=== PATIENT | male | born 1960 | race Caucasian/White ===

== ENCOUNTER 2017-11-04 08:30 | Outpatient (RCR) | payer MEDICAID, SELFPAY ==
--- NOTE | 2017-10-17 10:30 | IE_ITS ---
Date: October 17, 2017 Referring: Geovani Blair MD M.D. Diagnosis: Bilateral leg weakness P.T. Diagnosis: Same, with LBP SUBJECTIVE: History of Present Illness: Giles complains of intermittent discomfort throughout the knees, anterior and posteriorly. This generally occurs when initially standing after prolonged sitting and with walking for greater than 200 feet. He needs to sit down and his symptoms resolve within a few minutes. His knee pain is worse with stairclimbing, hills, along with squatting, occasional sensation of knee buckling. Also interferes with his sleeping pattern. It can be quite intense when he first retires at night. He has a.m stiffness and pain. His 2nd complaint is of intermittent lumbago, he is not sure if it is associated with his knee pain and they can occur separate from one another, even though generally lumbago occurs with weight bearing activities. A 57 year old male who developed an insidious onset of bilateral knee pain approximately 1 year ago. He has had some episodic LBP. He has not worked over the last 5 years. He was up to 337#, he is down to 300 with dieting, but no change in his overall symptoms. Pain Ratin/10 on VAS Pain Location: Through the low back area as well as anterior thighs and knees. Prior Level of Function: Independent with all ADL's Current Level of Function: He has difficulty with all household activity, squatting, donning and doffing shoes, carrying items whether light or heavy, stairclimbing, standing for more than 10 mins, etc. . . Previous Treatment: Injured his R knee approximately 5-7 years ago, recovered after 3 months. Social: Has not worked for 5 years. 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 . . Comorbidities: Diabetes, hypertension. Falls in the last year: __X__ No ____Yes - How many? ____ - (if over 2, balance SM needs to be completed) Reported hospitalizations in the last year - __X__ No ____ Yes - Dates of admission/reason: Medications: Ibuprofen prn, Metformin and Glucophage. Quality of Life: ____ Excellent ____ Good ____ Fair __X__ Poor Standardized Measures: LEFS score: __94%__ OBJECTIVE: Posture: Obese, (-) lateral shift, hyperpronator. Observation: (behavior, atrophy, skin color, etc.) His complaints of pain correlate with his movement patterns. Gait: Ambulates without assistive device with antalgia on the R from mid stance to push off. Again, he is a pronator. He is able to walk on his heel and toes without weakness. ROM: His lumbar movements in the upright position flexion distance between fingertips and floor is approximately 8 with complaints of lumbago. After stretching his hamstrings, he can get within 3-4 with end range drawing throughout the hamstrings. Extension is limited to 0 degrees, sidebending bilaterally is hypomobile with end range pain, sidegliding is non-painful. Bilateral hip motion is within functional limits without pain on movement. Has (-) SLR bilaterally with hamstring length at approximately 60 degrees, (-) Delvis' s test. Bilateral knee motion is full and painless with movement. (-) Daniel's or drawer sign, (-) laxity with valgus varus stress, (-) Robert's or Apley's grind test. (-) effusion, erythema or warmth. He is non-tender throughout the joint lines except medially on the R. (-) patellofemoral compression. His talocrural, subtalar and mid tarsal movements are full and painless with movement. He has a forefoot varus of approximately 7 degrees with subtalar neutral. Joint Accessory Motion: He is hypomobile with PA glides of the lumbar and thoracic spine, but this is non-painful. Strength: He has full motor control throughout at 5/5. Neuro: KJs/AJs are +2 and symmetrical. Sensation is intact to light touch. Palpation: Non-tender throughout the lumbar paraspinals, QL or piriformis. Minimally tender over the gluteus medius bilaterally and equally. Special Tests: (-) SLR or slump test, (-) femoral nerve stretch. Treatment: IE: [id number] Therapeutic procedures ([id number]). Direct treatment time: 60 mins Total treatment time: 60 mins ASSESSMENT: Patient is a 57-year-old male, referred for PT services with the diagnosis of lumbago and anterior thigh, and knee pain. Patient presents with clinical signs and symptoms consistent with this diagnosis, as demonstrated by the following impairment level findings: limited ROM of lumbar spine, along complaints of back and leg pain. His x-rays show mild degenerative changes throughout the lumbar spine, and his knee x-rays are unremarkable, according to the radiologist. Impairments are contributing to the following functional limitations: Difficulty with all ADL's due to his pain. Inability to stand or walk for more than a couple mins Patient is assessed as: __X__ Low 06982 ____ Moderate 64335 ____ High 20174 complexity, based on the following: History: (list): Chronic lumbago and sciatica See comorbidities and social history. Examination: (list): X See above for functional limitations and impairments. Presentation: X Stable . X Evolving Unstable Decision-Making: Low complexity Moderate complexity X High complexity % Disability based on LEFS of 94% __X__ Patient requires skilled PT intervention to remediate the above functional limitations to return to: __X__ Improve QOL ____ Other: Prognosis: ____ Excellent __X__ Good __X__ Fair ____ Poor STG: __6__ weeks. 1: Improve lumbar mobility, core and LE strength to decrease pain with weight bearing in hopes he will be able to stand and walk for longer periods of time without discomfort. LTG: __12__ weeks. 1: Improve his quality of life. PLAN: Session today consisted of the evaluation and issuing him a written, and illustrated home exercise program, instructing him in lumbar flexibility exercises along with some core strengthening, postural correction in a sitting, and standing position. Use of lumbar support when sitting. Will see him 2x a week and get him on a progression core stabilization program, mobilization of the articular and soft tissue structures, along with conditioning exercises. Will modify the program as symptoms dictate. Discussed aqua therapy to exercise in a more decompressed environment, but he is not interested in doing that currently. Thank you for this referral. Please do not hesitate to contact me with any questions or concerns regarding this patient's plan of care.
--- NOTE | 2017-10-24 09:08 | PTTR_ITS ---
DATE: 10/24/17 SUBJECTIVE: Pt reports that it is more his knees then his back that are bothering him. He states that his knees are sore at the end of the day and his back is more sore in the am after he wakes up. Compliant with HEP: X Yes OBJECTIVE: Therapeutic procedures ([id number]). * X HEP review: I reviewed pt's HEP to make sure that he was completing it correctly. * X Provided skilled instruction in proper exercise performance: Pt completed core stabilization ther ex, glute strengthening, LE strengthening, and cardio on the treadmill/Nu Step. Pt's vitals were taken post session please see flow sheet for specifics. Direct treatment time: 35 Total treatment time: 45
--- NOTE | 2017-10-27 09:04 | PTTR_ITS ---
DATE: 10/27/17 SUBJECTIVE: Pt reports that his back was sore the next day after his session for a couple of hours but was fine after that. He states that he thinks the pelvic tilt ex is what caused the soreness. Pt reports that the wall squats even modified were still bothersome to his knees and made them ache. OBJECTIVE: Therapeutic procedures ([id number]). * X Provided skilled instruction in proper exercise performance: Pt completed core stabilization ther ex, glute strengthening, open and closed chain LE strengthening, and cardio on the treadmill and Nu Step. Pt was able to tolerate a slight increase in his program today. We discussed proper nutrition to help with wt loss along with his ther ex would be beneficial to his joints and over all health. Pt's vitals were taken please see flow sheet for specifics. Direct treatment time: 30 Total treatment time: 45
--- NOTE | 2017-10-31 15:55 | NT_ITS ---
Giles cancelled today's scheduled appointment. Vivek Spring P.T. gc
--- NOTE | 2017-11-04 10:00 | PTTR_ITS ---
DATE: 11/04/17 OBJECTIVE: Co Treatment with PT Vivek Spring Therapeutic procedures ([id number]). * X Provided skilled instruction in proper exercise performance: Pt received McConnel taping to bilateral knees. Pt then completed a core stabilization program, glute strengthening, open and closed chain LE strengthening program taking into consideration patella femoral precautions, and cardio on the Nu Step /treadmill/UBE. Pt completed his cardio with the wellness and vitals were taken post session. Direct treatment time: 30 Total treatment time: 45
--- NOTE | 2017-11-04 12:39 | PN_ITS ---
DATE: November 04, 2017 SUBJECTIVE: Giles states that he has been sick a little bit over the last week or so. He has had a virus and bumped up his ibuprofen to approx. 2,000 mg/day. This has been somewhat helpful for his anterior knee and thigh discomfort, but he has been feeling punky anyway in regards to his virus, including STEWART's. OBJECTIVE: Dealing with anterior thigh and knee pain and occasionally lumbago. He has lost 5 lbs since working out. He is now on glipizide, as well as metformin. He has his blood sugars to 128. Posture: [] Gait: Ambulates without antalgia. Is able to walk on his heels and toes. He has pain and diffiuclty ascending and descending stairs and hills, descension more than ascension.He tends to be a little more symptomatic the day after an active day on stairs when babysitting his grandkids. He is also actively involved with his care right now.She is finishing her last week of chemo for breast CA and starts radiation next week. ROM: Lumbar movements are nonirritable. He has 20-30 degrees of extension and is able to touch fingertips to floor with end range drawing throughout the hamstrings. His hip movements are nonirritable with good ROM. Bilateral knee motion is -5-140 degrees without pain on movement. Negative effusion,erythema or warmth.Nontender throughout the jointlines, other than mildly over the medial jointline. He has positive patellofemoral compression with crepitation bilaterally and this simulates the discomfort that he was describing earlier. I review his HEP; he needed reminders and he is only partially compliant with this. I emphasize the importance of performing these. I review his x-rays of his spine and also knees with him. Treatment: TP [id number] Treatment time: 35 min. He was then seen by Zuly Decker PTA. Refer to her note. ASSESSMENT: Bilateral chondromalacia of the patella. Going to try some Calhoun taping or patella stabilizer to see if this is helpful with controlling some of his symptoms, particularly with stairs, etc. He needs to beef up his dynamic stabilizers, specifically the VMO. He has lost 5 lbs so he is moving in a positive direction. Hopefully we can burn off more calories. PLAN: Restart his therapeutic program consisting of core and LE strengthening with emphasis on the quads and glutes, particularly the VMO. Try some Calhoun taping, etc. Will eventually prepare him for MSP. XENAW/fw
== END 2017-11-04 23:59 | disposition home or self-care (01) ==
LOC: PT 08:30
PROVIDERS: PCP Family Medicine; Referring Provider Family Medicine; Visit Provider Family Medicine
DX: M25.561 Pain in right knee (principal); M25.562 Pain in left knee; M79.651 Pain in right thigh; M79.652 Pain in left thigh; M54.5 Low back pain; M51.16 Intervertebral disc disorders with radiculopathy, lumbar region
CPT/HCPCS: 97110; 97161

== ENCOUNTER 2017-12-20 09:30 | Outpatient (CLI) | payer MEDICAID, SELFPAY ==
[2017-12-20 11:24] LABS: Hemoglobin A1C 6.5 % (4.5-6.2)
== END 2017-12-20 09:50 ==
PROVIDERS: PCP Family Medicine; Visit Provider Family Medicine
DX: E11.9 Type 2 diabetes mellitus without complications (principal)
CPT/HCPCS: 36415; 83036

== ENCOUNTER 2018-04-25 08:44 | Outpatient (CLI) | payer MEDICAID, SELFPAY ==
[2018-04-25 12:04] LABS: Hemoglobin A1C 6.4 % (4.5-6.2)
== END 2018-04-25 09:04 ==
PROVIDERS: PCP Family Medicine; Visit Provider Family Medicine
DX: E11.9 Type 2 diabetes mellitus without complications (principal)
CPT/HCPCS: 36415; 83036

== ENCOUNTER 2018-07-28 07:06 | Outpatient (CLI) | payer MEDICAID, SELFPAY | END 2018-07-28 07:26 | PROVIDERS: PCP Family Medicine; Visit Provider Family Medicine | DX: E11.9 Type 2 diabetes mellitus without complications (principal) | CPT/HCPCS: 36415; 83036 ==

== ENCOUNTER 2019-12-12 01:20 | Outpatient (CLI) | payer OTHER, SELFPAY ==
[2019-12-12 08:17] LABS: Hemoglobin A1C 6.2 % (<5.7)
[2019-12-12 09:11] LABS: ALT 26 U/L (16-63); AST 19 U/L (15-37); Albumin 3.8 g/dL (3.4-5.0); Alkaline Phosphatase 67 U/L (46-116); Anion Gap 6.1 mmol/L (3-11); BUN 18 mg/dL (7-18); Bilirubin, Total 0.7 mg/dL (0.2-1.0); CO2 30.9 mmol/L (21.0-32.0); CREATININE 0.87 mg/dL (0.70-1.30); Calcium 8.7 mg/dL (8.5-10.1); Calculated LDL 115 mg/dL (<100); Chloride 103 mmol/L (98-107); Cholesterol 168 mg/dL (<200); Glucose 118 mg/dL (74-106); HDL Cholesterol 38 mg/dL (40-60); Potassium 4.4 mmol/L (3.5-5.1); Sodium 140 mmol/L (136-145); Total Protein 7.2 g/dL (6.4-8.2); Triglyceride 75 mg/dL (<150)
== END 2019-12-12 01:40 ==
DX: E11.65 Type 2 diabetes mellitus with hyperglycemia (principal); E66.01 Morbid (severe) obesity due to excess calories; I10 Essential (primary) hypertension; R53.83 Other fatigue; Z00.00 Encounter for general adult medical examination without abnormal findings; J30.89 Other allergic rhinitis
CPT/HCPCS: 36415; 80053; 80061; 83036

== ENCOUNTER → 2021-09-25 13:21 | Outpatient (BNVA) | payer MEDICARE, SELFPAY | PROVIDERS: Visit Provider Physical Therapy Assistant | DX: Z12.11 Encounter for screening for malignant neoplasm of colon (principal) ==

== ENCOUNTER 2021-10-19 02:28 | Outpatient (CLI) | payer MEDICARE, SELFPAY ==
[2021-10-19 10:46] LABS: Source Nasal/Nares
[2021-10-19 16:06] LABS: COVID-19 PCR Negative (Negative)
== END 2021-10-19 02:29 | disposition home or self-care (01) ==
LOC: LBO 02:28
PROVIDERS: Visit Provider Surgery
DX: Z20.822 Contact with and (suspected) exposure to COVID-19 (principal); Z01.818 Encounter for other preprocedural examination
CPT/HCPCS: 87635

== ENCOUNTER 2021-10-21 11:14 | Day surgery (SDC) | payer MEDICARE, SELFPAY ==
--- NOTE | 2021-10-21 05:49 | COLE_ITS ---
Colonoscopy Report Date of procedure: 10/21/21 Pre-op diagnosis general: Colon Cancer Screening Post-op diagnosis procedure note: same (and diverticulosis) Procedure: Colonoscopy Surgeon: Dafne Singer Anesthesia Type: General LMA/ETT Estimated blood loss (mL): 0 Pathology: none sent Complications: None Disposition: same day Indications: The patient is here for Colonoscopy pre-op. He has no family history of colon cancer. He has not had any bowel habit changes. -Discussed colonoscopy bowel prep as well as the procedure. Discussed possible complications of the procedure to include bleeding, pain, perforation, missed small lesion/polyp, sore throat, aspiration and adverse reaction to the medications. Questions were answered to patient?s satisfaction. No guarantees were implied or given.? Patient has a difficult airway Prep: Miralax/Dulcolax Procedure Start Time: 13:22 Procedure End Time: 13:54 Retraction Time: 10 minutes Findings: moderate to severe descending and sigmoid diverticulosis Procedure Description: After informed consent was obtained the patient was taken to the procedure room and placed in a left decubitous position. Monitors were applied and a time out was done. The patients name, date of , procedure, allergies to medicati ons and metal in their body was reviewed. The patient was then sedated. Once sedated and comfortable a rectal exam was done. External exam was normal. Internal exam revealed a normal sphincter tone and no palpable masses. The prostate felt smooth and enlarged. The scope was then introduced and retro-flexed. No internal hemorrhoids, polyps or masses were identified on retro-flexion. The scope was then advanced to the cecum with difficulty. The ileocecal vlave and appendiceal orifice were identified. The prep was marginal. The scope was then slowly retracted over 10 minutes back into the rectum. There were no polyps identified. There was moderate to severe descending and sigmoid diverticulosis noted. The scope was removed and the patient was woken up and taken back to Same day surgery in stable condition. The patient tolerated the procedure well and there were no immediate complications.
--- NOTE | 2021-10-21 05:50 | W.PM.DSUDISC ---
Discharge Plan Disposition Patient Disposition: HOME Condition: Good Discharge Details Reason For Visit: colonoscopy Attending Provider: Dafne Singer Primary Care Provider: Aleena Moraes Home Meds and New Rx's Prescriptions: Continued (DME) OneTouch Verio test strips Strip See Rx Instructions .ROUTE .MEDSUPPLY Qty: 100 4RF Rx Instructions: One Daily (DME) lancets 28 gauge misc 1 ea Miscellaneous DAILY Qty: 100 3RF Rx Instructions: One daily albuterol sulfate 90 mcg/actuation HFA aerosol inhaler 2 puff IH Q6H PRN (Reason: shortness of breath or wheezing) Qty: 8.5 4RF cholecalciferol (vitamin D3) 1,000 unit capsule 1,000 unit PO DAILY glucosamine sulfate 2KCl 1,000 MG capsule 500 mg PO DAILY diphenhydramine HCl [Benadryl] 25 mg capsule 25 mg PO QHS cyanocobalamin (vitamin B-12) 1,000 mcg capsule 1,000 mcg PO DAILY Qty: 90 4RF (DME) blood-glucose meter [OneTouch Verio Flex meter] Misc See Rx Instructions .ROUTE .MEDSUPPLY Qty: 1 0RF Rx Instructions: Use Daily glipizide 10 mg tablet 10 mg PO BID Qty: 180 4RF fluticasone propionate 50 mcg/actuation spray,suspension 1 spray MIKE DAILY Qty: 19.8 4RF sildenafil 100 mg tablet 100 mg PO ONCE Qty: 7 5RF Rx Instructions: administer 30 minutes to 4 hours before activity losartan 100 mg tablet See Rx Instructions .ROUTE .COMPLEX Qty: 90 4RF Dose Instruction: TAKE ONE TABLET BY MOUTH EVERY DAY Rx Instructions: TAKE ONE TABLET BY MOUTH EVERY DAY hydrochlorothiazide 25 mg tablet See Rx Instructions .ROUTE .COMPLEX Qty: 90 4RF Dose Instruction: TAKE ONE TABLET BY MOUTH EVERY MORNING Rx Instructions: TAKE ONE TABLET BY MOUTH EVERY MORNING metformin 500 mg tablet 500 mg PO DAILY Qty: 90 4RF ibuprofen [Advil Liqui-Gel] 200 MG capsule 800 mg PO DAILY Discontinued bisacodyl [Dulcolax (bisacodyl)] 5 mg tablet,delayed release (DR/EC) 5 mg PO ONCE Qty: 4 0RF Rx Instructions: Take according to provider's instructions for colonoscopy prep. polyethylene glycol 3350 17 gram/dose powder 17 g PO ONCE Qty: 238 0RF Rx Instructions: To be taken as directed by prescriber's office for colonoscopy prep. Discharge Instructions Instructions: Diverticulosis (DC) Additional Instructions: Findings: Severe diveticulosis Follow up: 10 years Please call if you develop: fevers >101.5 Nausea or Vomiting Abdominal pain that is not transient Rectal bleeding that is more then a tbsp A hard abdomen and inability to pass gas DAY SURGERY UNIT POST ENDOSCOPY INSTRUCTIONS Instructions for everyone who is given Anesthesia: For your safety, please do the following for the next 24 Hours: a. Do not drive or operate dangerous equipment b. Do not drink alcohol beverages or use any recreational drugs for the first 24 hours or while taking pain medications. The medications in your body may have a reaction that can be dangerous. c. Do not make any important decisions or sign any important papers 1. Generally there are no restrictions on your activity after a day or so has gone by, but you may feel a bit fatigued for a few days. 2. After you arrive home you may have a light meal and return to a normal diet as you can tolerate it without feeling sick to your stomach. 3. After surgery, you may feel pain or discomfort. This should be only transient, but if it persists please contact your doctor. 4. If there are any questions regarding the findings of your procedure, please feel free to contact your doctor. 6. If you are unable to contact your doctor with a problem, contact the hospital at [phone]. 7. Continue all your regular medications unless directed otherwise. I understand the above instructions and have no questions. Signature of Patient or Responsible Adult Escort Date/Time Name of Responsible Adult Escort Signature of Nurse Date/Time Activity:: Activity as Tolerated Diet:: high fiber Discharge Orders Discharge Orders: Discharge Order (Routine); Ordered 10/21/21 Ordered By: Dafne Singer
[2021-10-21 11:53] VITALS: BP 124/83; PULSE 86; RESP 14; TEMP 36.4; O2SAT 96
--- NOTE | 2021-10-21 12:08 | W.ANESPRE ---
General Info Date of Service Date Performed: 10/21/21 Height: 5 ft 10 in Weight: 128.1 kg Body Mass Index (BMI): 40.5 Surgical Procedure: Operation Date: 10/21/21 13:35 Proposed Procedure Side Surgeon p Yobany Singer MD Meds Allergies and Home Medications Allergies Allergy/AdvReac Type Severity Reaction Status Date / Time GOLDENROD Allergy Other (See Uncoded 10/21/21 11:37 Comment) Home Medication Medication Instructions Recorded ibuprofen 200 mg capsule (Advil 800 mg PO DAILY 03/08/13 Liqui-Gel) glucosamine sulfate 2KCl 1,000 mg 500 mg PO DAILY 08/15/15 capsule cholecalciferol (vitamin D3) 25 1,000 unit PO DAILY 04/25/18 mcg (1,000 unit) capsule diphenhydramine HCl 25 mg capsule 25 mg PO QHS 11/14/18 (Benadryl) cyanocobalamin (vitamin B-12) 1,000 mcg PO DAILY #90 caps 11/21/18 1,000 mcg capsule blood-glucose meter (OneTouch #1 ea 06/05/19 Verio Flex Meter) albuterol sulfate 90 mcg/actuation 2 puff inhalation Q6H PRN 03/25/20 aerosol inhaler shortness of breath or wheezing #8.5 grams blood sugar diagnostic (OneTouch #100 ea 06/09/20 Verio test strips) lancets 28 gauge #100 ea 06/09/20 glipizide 10 mg tablet 10 mg PO BID #180 tabs 12/29/20 fluticasone propionate 50 1 spray intranasal DAILY #19.8 01/01/21 mcg/actuation nasal grams spray,suspension sildenafil 100 mg tablet 100 mg PO ONCE #7 tabs 03/13/21 hydrochlorothiazide 25 mg tablet See Rx Instructions .Route 05/04/21 .COMPLEX #90 tabs losartan 100 mg tablet See Rx Instructions .Route 05/04/21 .COMPLEX #90 tabs metformin 500 mg tablet 500 mg PO DAILY #90 tabs 08/04/21 bisacodyl 5 mg tablet,delayed 5 mg PO ONCE #4 tabs 09/25/21 release (Dulcolax (bisacodyl)) polyethylene glycol 3350 17 17 g PO ONCE #238 grams 09/25/21 gram/dose oral powder Current Visit Medications: Current Medications Generic Name Dose Route Start Last Admin Trade Name Freq PRN Reason Stop Dose Admin Hyoscyamine Sulfate 0.125 mg 10/21/21 05:51 Hyoscyamine 0.125 Mg Sl/Oral/Chew SL DIRECTED PRN Ringer's Solution 1,000 mls @ 80 mls/hr 10/21/21 06:00 IV 11/19/21 23:59 INFUSION ISABELLE IV Miscellaneous Supplies 1 each 10/21/21 06:00 Iv Access IV 11/19/21 23:59 DIRECTED ISABELLE Ondansetron HCl 4 mg 10/21/21 05:51 Ondansetron 4 Mg/2 Ml Vial IVP Q4H PRN PRN Nausea / Vomiting Sodium Chloride 0 ml 10/21/21 06:00 Normal Saline Flush 10 Ml Syr IV 11/19/21 23:59 PRN PRN Sodium Chloride 0 ml 10/21/21 06:00 Normal Saline 10 Ml Vial IJ 11/19/21 23:59 DIRECTED PRN Sterile Water 0 ml 10/21/21 06:00 Water,Injection,Sterile 10 Ml Vial IJ 11/19/21 23:59 DIRECTED PRN PFSH Active Problems Active Problems: Problem Status Onset Code 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 STATED THEY COULDNT GET THE TUBE DOWN HIS THROAT. Cyanocobalamin deficiency Diabetes mellitus (02/11/14) Encounter for annual physical exam Erectile dysfunction (10/18/13) Essential hypertension (03/30/13) Fatigue History of tobacco use Quit 1996 - pack year smoker prior Knee injury DR. AHMADI; OCCUPATION THERAPY AND PT; RIGHT KNEE Knee pain, bilateral Screening cholesterol level Sensorineural hearing loss, bilateral (01/04/14) Urinary frequency (08/15/15) Medical History Comments:: PER PT. DIFFICULT AIRWAY DURING UMBILICAL HERNIA REPAIR Surgical History Surgical History Repair of umbilical hernia (~09/2010) ventral and umbilical Tobacco Smoking/Tobacco Use Status: Former Tobacco Use Passive smoking exposure: Yes Second hand exposure: Yes Alcohol Alcohol Intake: former Substance Use Substance use: Never Substance use type: does not use Counseling provided: none Vital Signs and Lab Results Vital Signs Most Recent Vital Signs in EMR: Most Recent Vital Signs Temp Pulse Resp BP Pulse Ox 36.4 C L 86 14 124/83 96 10/21/21 11:53 10/21/21 11:53 10/21/21 11:53 10/21/21 11:53 10/21/21 11:53 Point of Care Results Point of Care Results: Finger Stick Blood Glucose 122 10/21/21 12:04 Lab Results Blood Type / Crossmatch: No Data to Display Complete Blood Count: No Data to Display Complete Metabolic Panel: No Data to Display Liver Function Panel: No Data to Display Coagulation Panel: No Data to Display Cardiac Panel: No Data to Display Arterial Blood Gas: No Data to Display Venous Blood Gas: No Data to Display Pancreas Panel: No Data to Display Thyroid Panel: No Data to Display Infectious Disease: Coronavirus (COVID-19)(PCR) Negative (Negative) 10/19/21 08:45 Coronavirus 2019 Source Nasal/Nares 10/19/21 08:45 Blood Cultures: No Data to Display Toxicology Panel: No Data to Display Anesthesia Assessment and Plan Anesthesia History Personal History: Other (DIFFICULT AIRWAY ) Family History: No Family History of Anesthesia Complications Exercise Tolerance Exercise Tolerance: Metabolic Equivalents<4 Pertinent Negatives Pertinent Negatives: No Symptoms of GERD and No Major Cardiovascular Symptoms or Complaints Cardiac & Pulmonary Exam Cardiac Exam: Normal S1/S2 Heart Sounds Pulmonary Exam: Clear Bilateral Breath Sounds Implantable Cardiac Device Does patient have a Pacemaker or an ICD?: No Airway Exam Known Difficult Airway: Yes Previous Airway Comments:: Difficult Intubation Mallampati Class: 4 Mouth Opening: Narrow (< 3cm) Thyromental Distance: Less than 3 cm Neck Range of Motion: Full ROM and Limited ROM Neck Circumference: Thick Teeth Condition: Normal Dentition ASA Classification ASA Score: ASA 3 Emergency Case?: No NPO Status NPO Status: NPO Clears >2 hours, Solids >8 hours Anesthesia Plan Resuscitation Status: Full Code Anesthesia Technique: General Anesthesia Airway Planned: Natural Airway Monitors Used: Standard Monitors
[2021-10-21 12:13] VITALS: BMI 40.5
[2021-10-21] MEDS: Lactated Ringers 1,000 ML 80 ML IV (12:15)
[2021-10-21 14:00] VITALS: BP 101/55; PULSE 103; RESP 18; TEMP 35.9; O2SAT 95
[2021-10-21 14:26] VITALS: BP 101/46; PULSE 84; RESP 165; TEMP 36.3; O2SAT 96
[2021-10-21] MEDS: Normal Saline Flush 10 ML SYR IV (14:33)
[2021-10-21 15:15] VITALS: BP 115/61; PULSE 74; RESP 16; TEMP 36.2; O2SAT 100
--- NOTE | 2021-10-22 06:56 | W.ANESPOSTOP ---
Postoperative Evaluation Date, Time and Location Date Performed: 10/21/21 Time Performed: 15:31 Patient Location: Day Surgery Unit Vital Signs Most Recent Imported Vital Signs: Most Recent Vital Signs Temp Pulse Resp BP Pulse Ox 36.2 C L 74 16 115/61 100 10/21/21 15:15 10/21/21 15:15 10/21/21 15:15 10/21/21 15:15 10/21/21 15:15 Pain Score Most Recent Pain Score: Most Recent Pain Score Pain Level 0 10/21/21 15:15 Assessment Mental Status: Awake (Alert & Oriented to Patient Baseline) Airway and Respiratory Function: Patent airway with normal (patient baseline) respiratory exam Cardiovascular Function: Hemodynamically Stable Hydration Status: Adequately Hydrated Nausea & Vomiting: No Nausea or Vomiting Pain: Pt. Denies Any Pain Peripheral Nerve Block: Patient did not receive a nerve block
== END 2021-10-21 15:25 | disposition home or self-care (01) ==
LOC: SUR 11:15
PROVIDERS: Visit Provider Surgery
PROC: 0DJD8ZZ Inspection of Lower Intestinal Tract, Via Natural or Artificial Opening Endoscopic (ICD-10-PCS; CPT 45378; principal; 2021-10-21 13:30)
DX: Z12.11 Encounter for screening for malignant neoplasm of colon (principal); K57.30 Diverticulosis of large intestine without perforation or abscess without bleeding
CPT/HCPCS: G0121; J2704

== ENCOUNTER 2021-12-21 03:37 | Outpatient (CLI) | payer MEDICARE, SELFPAY ==
[2021-12-21 12:27] LABS: ALT 104 U/L (16-63); AST 27 U/L (15-37); Albumin 3.7 g/dL (3.4-5.0); Alkaline Phosphatase 101 U/L (46-116); Anion Gap 8.6 mmol/L (3-11); BUN 19 mg/dL (7-18); Bilirubin, Total 0.5 mg/dL (0.2-1.0); CO2 27.4 mmol/L (21.0-32.0); CREATININE 0.8 mg/dL (0.70-1.30); Calcium 8.7 mg/dL (8.5-10.1); Calculated LDL 109 mg/dL (<100); Chloride 104 mmol/L (98-107); Cholesterol 158 mg/dL (<200); Estimated GFR 100.69 (mL/min/1.73m2); Glucose 143 mg/dL (74-106); HDL Cholesterol 39 mg/dL (40-60); Sodium 140 mmol/L (136-145); Total Protein 7.6 g/dL (6.4-8.2); Triglyceride 50 mg/dL (<150)
[2021-12-21 18:02] LABS: PSA, Screening 0.6 ng/mL (<=4.5)
== END 2021-12-21 03:38 | disposition home or self-care (01) ==
LOC: LOS 03:37
PROVIDERS: Emergency Medicine
DX: N40.1 Benign prostatic hyperplasia with lower urinary tract symptoms (principal); R35.1 Nocturia; Z12.5 Encounter for screening for malignant neoplasm of prostate; Z00.00 Encounter for general adult medical examination without abnormal findings; E11.65 Type 2 diabetes mellitus with hyperglycemia; Z13.220 Encounter for screening for lipoid disorders
CPT/HCPCS: 36415; 80053; 80061; 84153

== ENCOUNTER 2022-06-16 01:24 | Outpatient (CLI) | payer MEDICARE, SELFPAY ==
--- NOTE | 2022-06-16 07:15 | DI.RAD_ITS ---
Exam(s) XR SHOULDER RT COMPLETE 2+V EXAM: XR SHOULDER RT COMPLETE 2+V CLINICAL HISTORY: LTD ROM and pain,M25.511. TECHNIQUE: 2D digital imaging was performed. COMPARISON: No exams were available for comparison FINDINGS: Five views: No evidence of acute fracture or dislocation nor significant soft tissue calcifications in the subacr omial space. Small degenerative cysts are noted in the lateral aspect of the humeral head. There ar e mild-moderate degenerative changes in the glenohumeral joint and some degenerative change also evid ent in the AC joint. No evidence of os acromiale. IMPRESSION: Mild degenerative changes. DATA REPOSITORY: RADIATION DOSE DELIVERED:
== END 2022-06-16 01:44 ==
PROVIDERS: PCP Nurse Practitioner Family; Visit Provider Nurse Practitioner Family
DX: M25.511 Pain in right shoulder (principal); M25.811 Other specified joint disorders, right shoulder
CPT/HCPCS: 73030

== ENCOUNTER → 2022-06-30 08:33 | Outpatient (BNVA) | payer MEDICARE, SELFPAY | PROVIDERS: PCP Nurse Practitioner Family; Referring Provider Nurse Practitioner Family; Visit Provider Student in an Organized Health Care Education/Training Program | DX: M75.101 Unspecified rotator cuff tear or rupture of right shoulder, not specified as traumatic (principal) | CPT/HCPCS: 99203; 99213 ==

== ENCOUNTER 2022-07-22 01:58 | Outpatient (CLI) | payer MEDICARE, SELFPAY ==
--- NOTE | 2022-07-22 08:00 | DI.MRI_ITS ---
Exam(s) MR UPPER JOINT RT WO EXAM: MR UPPER JOINT RT WO CLINICAL HISTORY: pain, rt rotator cuff tear,m75.101. TECHNIQUE: Multiplanar multisequence MRI was performed. COMPARISON: CR XR SHOULDER RT COMPLETE 2+V from 06/16/2022 FINDINGS: BONES: There is no fracture or contusion pattern. JOINTS: Mild degenerative changes are seen at the acromioclavicular joint. The glenohumeral joint is normal. TENDONS: Supraspinatus: There is a full-thickness tear through the supraspinatus tendon anteriorly at its inse rtion site. Infraspinatus: Unremarkable. Subscapularis: Unremarkable. Teres Minor: Unremarkable. Biceps and [place]: Portion of the proximal biceps tendon is not visualized and a partial tear should be considered. MUSCLES: Unremarkable. GLENOID LABRUM: Unremarkable on this noncontrast examination. SOFT TISSUES: Unremarkable. LIGAMENTS: Unremarkable. OTHER: There is a small amount of fluid seen in the subacromial subdeltoid bursa. IMPRESSION: 1. Full-thickness tear through the supraspinatus tendon anteriorly at its insertion site. 2. Question of a partial proximal biceps tendon tear. 3. Degenerative changes of the acromioclavicular joint. 4. Small amount of fluid seen in the subacromial subdeltoid bursa. DATA REPOSITORY:
== END 2022-07-22 02:18 ==
PROVIDERS: PCP Nurse Practitioner Family; Visit Provider Student in an Organized Health Care Education/Training Program
DX: M75.101 Unspecified rotator cuff tear or rupture of right shoulder, not specified as traumatic (principal); M19.011 Primary osteoarthritis, right shoulder
CPT/HCPCS: 73221

== ENCOUNTER → 2022-07-27 10:52 | Outpatient (BNVA) | payer MEDICARE, SELFPAY | PROVIDERS: PCP Nurse Practitioner Family; Referring Provider Nurse Practitioner Family; Visit Provider Student in an Organized Health Care Education/Training Program | DX: M75.101 Unspecified rotator cuff tear or rupture of right shoulder, not specified as traumatic (principal); Z91.89 Other specified personal risk factors, not elsewhere classified | CPT/HCPCS: 99214 ==

== ENCOUNTER 2022-08-19 08:55 | Day surgery (SDC) | payer MEDICARE, SELFPAY ==
[2022-08-19] VITALS (11 sets, daily range): BP systolic 106–154; BP diastolic 46–82; PULSE 66–83; RESP 16–23; TEMP 36.2–36.7; O2SAT 90–98; BMI 39.5
--- NOTE | 2022-08-19 09:11 | W.ANESPRE ---
General Info Date of Service Date Performed: 08/19/22 Height: 5 ft 10 in Weight: 125 kg Body Mass Index (BMI): 39.5 Surgical Procedure: Operation Date: 08/19/22 11:40 Proposed Procedure Side Surgeon p Shoulder Rotator Cuff Arthroscopic w/Extensive Debridement, Biceps Tenodesis, Subacromial Decompression Right Ramos Olvera MD Meds Allergies and Home Medications Allergies Allergy/AdvReac Type Severity Reaction Status Date / Time GOLDENROD Allergy Other (See Uncoded 08/19/22 09:26 Comment) Home Medication Medication Instructions Recorded cholecalciferol (vitamin D3) 25 1,000 unit PO DAILY 04/25/18 mcg (1,000 unit) capsule cyanocobalamin (vitamin B-12) 1,000 mcg PO DAILY #90 caps 11/21/18 1,000 mcg capsule blood-glucose meter (OneTouch #1 ea 11/17/21 Verio Flex Meter) lancets 28 gauge #100 ea 11/17/21 albuterol sulfate 90 mcg/actuation 2 puff inhalation Q6H PRN 02/08/22 aerosol inhaler shortness of breath or wheezing #8.5 grams blood sugar diagnostic (OneTouch #100 ea 02/08/22 Verio test strips) fluticasone propionate 50 1 spray intranasal DAILY #19.8 02/08/22 mcg/actuation nasal grams spray,suspension hydrochlorothiazide 25 mg tablet 25 mg PO DAILY #90 tabs 02/08/22 losartan 100 mg tablet 100 mg PO DAILY #90 tabs 02/08/22 sildenafil 100 mg tablet 100 mg PO ONCE #7 tabs 02/08/22 metformin 500 mg tablet 500 mg PO BID #180 tabs 06/14/22 Current Visit Medications: Current Medications Generic Name Dose Route Start Last Admin Trade Name Freq PRN Reason Stop Dose Admin Ringer's Solution 1,000 mls @ 30 mls/hr 08/19/22 06:00 IV 09/17/22 23:59 INFUSION ISABELLE Cefazolin Sodium 3,000 mg/ 100 mls @ 200 mls/hr 08/19/22 06:00 Sodium Chloride IVPB 08/19/22 18:00 PREOP ISABELLE IV Miscellaneous Supplies 1 each 08/19/22 06:00 Iv Access IV 09/17/22 23:59 DIRECTED ISABELLE Sodium Chloride 0 ml 08/19/22 06:00 Normal Saline Flush 10 Ml Syr IV 09/17/22 23:59 PRN PRN Sodium Chloride 0 ml 08/19/22 06:00 Normal Saline 10 Ml Vial IJ 09/17/22 23:59 DIRECTED PRN Sterile Water 0 ml 08/19/22 06:00 Water,Injection,Sterile 10 Ml Vial IJ 09/17/22 23:59 DIRECTED PRN PFSH Active Problems Active Problems: Problem Status Onset Code Difficult airway for intubation T88.4XXA Right rotator cuff tear M75.101 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 STATED THEY COULDNT GET THE TUBE DOWN HIS THROAT. Cyanocobalamin deficiency Diabetes mellitus (02/11/14) Encounter for annual physical exam Erectile dysfunction (10/18/13) Essential hypertension (03/30/13) Fatigue History of tobacco use Quit 1996 - pack year smoker prior Knee injury DR. AHMADI; OCCUPATION THERAPY AND PT; RIGHT KNEE Knee pain, bilateral Screening cholesterol level Sensorineural hearing loss, bilateral (01/04/14) Urinary frequency (08/15/15) Medical History Comments:: PER PT. DIFFICULT AIRWAY DURING UMBILICAL HERNIA REPAIR Surgical History Surgical History History of colonoscopy (~10/2021) Repair of umbilical hernia (~09/2010) ventral and umbilical Tobacco Smoking/Tobacco Use Status: Former Tobacco Use Passive smoking exposure: Yes Second hand exposure: Yes Alcohol Alcohol Intake: former Substance Use Substance use: Never Substance use type: does not use Counseling provided: none Vital Signs and Lab Results Vital Signs Most Recent Vital Signs in EMR: Temp Pulse Resp BP Pulse Ox 36.6 C 66 17 137/80 98 08/19/22 09:35 08/19/22 09:35 08/19/22 09:35 08/19/22 09:35 08/19/22 09:35 Lab Results Blood Type / Crossmatch: No Data to Display Complete Blood Count: No Data to Display Complete Metabolic Panel: No Data to Display Liver Function Panel: No Data to Display Coagulation Panel: No Data to Display Cardiac Panel: No Data to Display Arterial Blood Gas: No Data to Display Venous Blood Gas: No Data to Display Pancreas Panel: No Data to Display Thyroid Panel: No Data to Display Infectious Disease: No Data to Display Blood Cultures: No Data to Display Toxicology Panel: No Data to Display Imaging and Studies Imaging and Studies Study information below may be from another EMR and interpreted by another provider. Please see original notes in EMR for more complete details. Pulmonary Function Summary: 03/2014: normal. Anesthesia Assessment and Plan Anesthesia History Personal History: Other (DIFFICULT AIRWAY ) Family History: No Family History of Anesthesia Complications Exercise Tolerance Exercise Tolerance: Metabolic Equivalents>4 Cardiac & Pulmonary Exam Cardiac Exam: Normal S1/S2 Heart Sounds Pulmonary Exam: Clear Bilateral Breath Sounds Implantable Cardiac Device Does patient have a Pacemaker or an ICD?: No Airway Exam Known Difficult Airway: No Mallampati Class: 4 Mouth Opening: Narrow (< 3cm) Thyromental Distance: Less than 3 cm Neck Range of Motion: Limited ROM Neck Circumference: Thick Teeth Condition: Normal Dentition ASA Classification ASA Score: ASA 3 Emergency Case?: No NPO Status NPO Status: NPO Clears >2 hours, Solids >8 hours Anesthesia Plan Resuscitation Status: Full Code Anesthesia Technique: General Anesthesia Airway Planned: Endotracheal Tube Pain Management: Surgeon and patient request nerve block Monitors Used: Standard Monitors Preoperative Comments:: 61 yo male for RTC repair. Sig PMHx: DMII (metformin), HTN (HCTZ, losartan), former smoker, Previous Anes: - labeled diff airway in the past during hernia repair, but repair was completed. - colo, prop only, no issues.
[2022-08-19] MEDS: Lactated Ringers 1,000 ML 30 ML IV (09:50)
--- NOTE | 2022-08-19 11:01 | W.PM.DSUDISC ---
Date of service: 08/19/22 Time of Service: 14:00 Discharge Plan Disposition Patient Disposition: Home Discharge Details Attending Provider: Ramos Olvera Primary Care Provider: Roland Owen Home Meds and New Rx's Prescriptions: New aspirin 81 mg tablet,delayed release (DR/EC) 81 mg PO DAILY 7 Days Qty: 7 0RF naproxen 250 mg tablet 250 - 500 mg PO BID PRNQty: 40 0RF Rx Instructions: take with a meal oxycodone-acetaminophen [Percocet] 5-325 mg tablet 1 - 2 tab PO Q4H MDD 30 mg PRN (Reason: Moderate to severe pain) Qty: 18 0RF Continued (DME) lancets 28 gauge misc 1 ea Miscellaneous DAILY Qty: 100 3RF Rx Instructions: One daily (DME) blood-glucose meter [OneTouch Verio Flex meter] Misc See Rx Instructions .ROUTE .MEDSUPPLY Qty: 1 0RF Rx Instructions: Use Daily metformin 500 mg tablet 500 mg PO BID Qty: 180 4RF cholecalciferol (vitamin D3) 1,000 unit capsule 1,000 unit PO DAILY cyanocobalamin (vitamin B-12) 1,000 mcg capsule 1,000 mcg PO DAILY Qty: 90 4RF albuterol sulfate 90 mcg/actuation HFA aerosol inhaler 2 puff IH Q6H PRN (Reason: shortness of breath or wheezing) Qty: 8.5 4RF (DME) OneTouch Verio test strips Strip See Rx Instructions .ROUTE .MEDSUPPLY Qty: 100 4RF Rx Instructions: One Daily fluticasone propionate 50 mcg/actuation spray,suspension 1 spray MIKE DAILY Qty: 19.8 4RF hydrochlorothiazide 25 mg tablet 25 mg PO DAILY Qty: 90 4RF losartan 100 mg tablet 100 mg PO DAILY Qty: 90 4RF sildenafil 100 mg tablet 100 mg PO ONCE Qty: 7 2RF Rx Instructions: administer 30 minutes to 4 hours before activity Discharge Instructions Additional Instructions: Surgery: Right shoulder arthroscopy with rotator cuff repair (supraspinatus), extensive debridement, and subacromial decompression; Proximal biceps rupture Activity: For 6 weeks, you should keep your arm at your side in a neutral position at all times except for physical therapy. Do not try to lift or raise your arm using your own muscles. You should use the sling whenever you are out of the house. You may have to adjust the abduction pillow or remove it for comfort. At home it is best to remove the sling and rest the arm on a pillow at your side or support the operative side with your other hand. You may allow the arm to dangle at your side. A physical therapy prescription will be sent electronically to begin in about 3 weeks. Prescriptions: Aspirin 81 mg take 1 daily to prevent a blood clot for 7 days (starting tomorrow afternoon) Naproxen 250 mg take 1-2 every 12 hours with a meal as needed for moderate pain Oxycodone-acetaminophen 5-325 mg take 1-2 every 4-6 hours as needed for severe pain (contains Tylenol) You may use [id number] Tylenol (acetaminophen) as needed for mild pain. These pain medications may be taken all at once or in different combinations as needed. Also, recommend Colace (docusate) as a stool softener as surgery and pain medicine cause constipation. You may try [id number] diphenhydramine (Benadryl) 25-50 mg nightly as a sleep aid Dressings: Remove shoulder bandage after 3 days. Leave the sticky Steri-Strips in place until they fall off or remove them after you shower. Cover the incisions with Band-Aids or leave them open to air. You may shower after 5 days. Follow-up: 10-[address] Olvera You may take off the leg compression stockings this evening at home. You may also leave them on a few days longer if you have a history of leg swelling or edema. Let us know right away if you develop any redness, drainage, fevers, chest pain, or trouble breathing. Do not drink alcohol or drive for at least 24 hours after anesthesia. Please call the office during business hours with any questions or concerns. Discharge Orders Discharge Orders: Discharge Order (Routine); Ordered 08/19/22 Ordered By: Ramos Olvera DS: Diagnosis Discharge Diagnosis (1) Right rotator cuff tear: Status: Acute
--- NOTE | 2022-08-19 11:02 | W.PM.OP ---
Date of service: 08/19/22 Time of Service: 12:00 Operative Note Operative Note DATE OF PROCEDURE: 08/19/22 PRE-OP DIAGNOSIS: Right: 1. Rotator cuff tear 2. Proximal biceps rupture 3. Bursitis 4. Impingement POST-OP DIAGNOSIS: same PROCEDURE: Right: 1. Rotator cuff repair, CPT# 96805. This involved repair of the supraspinatus using anchors and sutures to reattach the rotator cuff back to the footprint of the greater tuberosity. 2. Extensive debridement, CPT# 34600. This involved using arthroscopic hand instruments, power instruments, and radiofrequency instruments to debride biceps tendon stump remnant, debride areas of anterior and superior labral tearing, rotator interval synovitis, and debride/reduce prominent greater tuberosity working within the glenohumeral joint anteriorly, superiorly and bursal space. 3. Subacromial decompression with partial acromioplasty, CPT# 30914. This involved using arthroscopic power instruments and a radiofrequency wand to complete a bursectomy and smooth the undersurface of the acromion. The language assistant was medically required in order to help assist in techniques above, which require positioning the arm, holding the arthroscope, and manipulating multiple instruments and sutures at the same time. This cannot be done without the help of an experienced language assistant. SURGEON: Ramos Olvera RAIL TRACTOR OPERATOR: Wolfgang Garrido ANESTHESIA TYPE: General LMA/ETT and Primary Nerve Block Refer to Anesthesia Record ESTIMATED BLOOD LOSS: 10 PATHOLOGY: none sent COMPLICATIONS: None Patient was transported to: PACU Patient's condition: stable Implants: Arthrex: 4.75mm SwiveLocks x 4 Indications: The patient was diagnosed with the above conditions and appropriately indicated for surgical intervention. Please see complete medical record for details. Findings: Exam under anesthesia: Full range of motion, no instability Glenohumeral joint: Significant anterior superior and rotator interval synovitis. Obvious full-thickness supraspinatus rotator cuff tear. Upper margin subscapularis partial tearing, but footprint largely intact. Complete intra-articular biceps rupture. Frayed tendon remnant superior labrum. Anterior and superior labral fraying. Intact articular infraspinatus. Subacromial space: Significant bursitis, medial undersurface acromial bone spurring impinging on bursal cuff. Obvious full-thickness complete supraspinatus crescent tear. Intact infraspinatus. Procedure Description: In the operating room, general anesthesia was induced. Bilateral shoulders were examined. The patient was positioned in the beachchair position. All bony prominences were well-padded. Preoperative antibiotics were administered. The shoulder was prepped and draped in the usual sterile fashion. The correct patient, procedure, and side of the procedure were all verified prior to incision. Starting through the posterior portal a standard complete diagnostic arthroscopy was performed of the glenohumeral joint including inspection of the long head of the biceps, anterior and superior labrum, subscapularis tendon, supraspinatus and infraspinatus tendons, and axillary recess. Through the full-thickness rotator cuff tear, a anterior superior portal was established. The glenoid and humeral head cartilage as well as the posterior labrum were inspected from this anterior viewing portal. Significant findings and interventions noted above. The anterior superior lateral portal was used to direct the arthroscope into the subacromial space. A posterior superior lateral portal was established as well as a lateral 50 yard line lateral portal centered at the rotator cuff tear. A combination of power instruments and a radiofrequency ablator were used to debride bursitis anteriorly, posteriorly, and laterally as well as expose and smooth bone spurring on the undersurface of the acromion. The coracoacromial ligament was minimally released. The bursectomy was completed viewing laterally and working from posteriorly and the rotator cuff was thoroughly inspected with findings noted above. The supraspinatus tendon had reasonable excursion and tissue quality. The greater tuberosity was thoroughly prepared to optimize bone tendon healing from medial to lateral across the entirety of the footprint. The greater tuberosity had quite a prominence, which was reduced to complete repair and minimize tuberosity impingement in the subacromial space. Correct arm position and reduction was confirmed and a speed bridge repair was completed with medial row 4.75 mm SwiveLock anchors placed loaded with fiber tape sutures. These were shuttled in pairs through the appropriate levels medially through the supraspinatus rotator cuff tear using the self retrieving suture passer and a shuttle FiberLink. Reduction was confirmed through the rigid Rosana cannula clear insert to the lateral row. The anterior lateral row anchor was done first. An additional FiberLink suture tape was placed in cinch mode at the far posterior aspect of the tear near the junction of the infraspinatus to ensure complete tissue repair and repaired with the remaining medial row FiberTape's to the posterior lateral row anchor. There was excellent reduction and compression of the rotator cuff across the greater tuberosity. It was stable through range of motion and testing. The shoulder was drained of arthroscopic fluid. All portal sites were copiously irrigated. These incisions were closed using 3-0 Monocryl in a buried fashion and then covered with Mastisol, Steri-Strips, Xeroform, dry gauze, and ABDs. The dressings were covered and secured with Medipore tape. The operative extremity was placed into a sling for immobilization. The patient awoke from anesthesia without complication and was transferred to the recovery room in a stable condition.
[2022-08-19] MEDS: ceFAZolin 3,000 MG in Normal Saline 100 ML 200 MG IVPB (11:15)
--- NOTE | 2022-08-19 11:33 | W.ANESNERVE ---
Nerve Block Single Injection Procedure Date and Time Date Performed: 08/19/22 Procedure Start: 10:52 Location Where Procedure Performed Procedure Location: Day Surgery Unit Reason Performed: Postoperative Analgesia Requesting Provider: Ramos Olvera Timeout Performed Timeout Performed: Yes Monitoring Used ECG, Blood Pressure, SpO2 and ETCO2 Sterility Sterility: Hand Hygiene, Surgical Cap, Surgical Mask, Sterile Gloves and Chlorhexidine Sedation Given During Procedure Sedation Given (Indicate Dose Given): Versed IV Dose:: 2 mg Patient Mental Status Patient Mental Status: Awake Nerve Block 1st Nerve Block: Laterality: Right Block Type: Interscalene Ultrasound Image Saved?: Yes Needle / Catheter Used: 100mm SonoPlex II Local Anesthetic Bolus (Indicate Dose Given): Lidocaine used for local infiltration of skin, Bupivacaine 0.5% Dose:: 15 mL and Exparel Dose:: 10 mL Additives (Indicate Dose Given): None Ultrasound: Sterile probe cover and gel used Nerve Stimulator: Supplement to Ultrasound use and No twitch or parasthesia noted < 0.5 mA Paresthesia: None Procedure Tolerated: No Complications Procedure Outcome: Successful Performed By: David Freeman
[2022-08-19] MEDS: EPINEPHrine 30 MG/30 ML VIAL (12:42)
[2022-08-19] MEDS: Albuterol/Ipratropium 3 ML UPD VIAL UPD (13:53)
--- NOTE | 2022-08-19 13:53 | W.ANESPOSTOP ---
Postoperative Evaluation Date, Time and Location Date Performed: 08/19/22 Time Performed: 13:53 Patient Location: PACU Vital Signs Most Recent Imported Vital Signs: Most Recent Vital Signs Temp Pulse Resp BP Pulse Ox 36.2 C L 75 19 132/76 91 L 08/19/22 13:40 08/19/22 13:40 08/19/22 13:40 08/19/22 13:40 08/19/22 13:40 Pain Score Most Recent Pain Score: Most Recent Pain Score Pain Level 0 08/19/22 13:40 Assessment Mental Status: Awake (Alert & Oriented to Patient Baseline) Airway and Respiratory Function: Patent airway with normal (patient baseline) respiratory exam and Other (Spo2 91 on 2 l, IS being used, cough/deep breathing encouraged, neb ordered. ) Cardiovascular Function: Hemodynamically Stable Hydration Status: Adequately Hydrated Nausea & Vomiting: No Nausea or Vomiting Pain: Pain is tolerable per patient Peripheral Nerve Block: Regional nerve block not resolved at time of post operative discharge
== END 2022-08-19 15:35 | disposition home or self-care (01) ==
PROVIDERS: PCP Nurse Practitioner Family; Visit Provider Student in an Organized Health Care Education/Training Program
PROC: (CPT 29827; principal; 2022-08-19 11:30)
DX: M75.101 Unspecified rotator cuff tear or rupture of right shoulder, not specified as traumatic (principal); M75.41 Impingement syndrome of right shoulder; M75.51 Bursitis of right shoulder; M75.21 Bicipital tendinitis, right shoulder
CPT/HCPCS: 29827; 29823; 29826; 76942; J0690; J1100; J1885; J2001; J2250; J2371; J2405; J2704; J7620

== ENCOUNTER → 2022-09-01 10:51 | Outpatient (BNVA) | payer MEDICARE, SELFPAY | PROVIDERS: PCP Nurse Practitioner Family; Referring Provider Nurse Practitioner Family; Visit Provider Student in an Organized Health Care Education/Training Program | DX: Z47.89 Encounter for other orthopedic aftercare (principal); M75.101 Unspecified rotator cuff tear or rupture of right shoulder, not specified as traumatic ==

== ENCOUNTER → 2022-10-27 08:12 | Outpatient (BNVA) | payer MEDICARE, SELFPAY | PROVIDERS: PCP Nurse Practitioner Family; Referring Provider Nurse Practitioner Family; Visit Provider Student in an Organized Health Care Education/Training Program | DX: Z47.89 Encounter for other orthopedic aftercare (principal); M75.101 Unspecified rotator cuff tear or rupture of right shoulder, not specified as traumatic ==

== ENCOUNTER → 2022-12-29 08:04 | Outpatient (BNVA) | payer MEDICARE, SELFPAY | PROVIDERS: PCP Nurse Practitioner Family; Referring Provider Nurse Practitioner Family; Visit Provider Student in an Organized Health Care Education/Training Program | DX: M75.101 Unspecified rotator cuff tear or rupture of right shoulder, not specified as traumatic (principal) ==

== ENCOUNTER 2023-01-17 04:13 | Outpatient (CLI) | payer MEDICARE, SELFPAY ==
[2023-01-17 12:55] LABS: Anion Gap 8.1 mmol/L (3-11); BUN 13 mg/dL (7-18); CO2 27.9 mmol/L (21.0-32.0); CREATININE 0.8 mg/dL (0.70-1.30); Chloride 103 mmol/L (98-107); Estimated GFR 100.06 (mL/min/1.73m2); Glucose 146 mg/dL (74-106); Potassium 4.1 mmol/L (3.5-5.1); Sodium 139 mmol/L (136-145)
[2023-01-18 00:01] LABS: PSA, Screening 0.6 ng/mL (<=4.5)
[2023-01-18 08:38] LABS: HIV-1/2 Ag & Ab Screen Negative (Negative)
[2023-01-18 08:56] LABS: Hepatitis C Ab w Rflx HCV PCR Negative (Negative)
== END 2023-01-17 04:14 | disposition home or self-care (01) ==
LOC: LOS 04:13
PROVIDERS: PCP Nurse Practitioner Family; Visit Provider Nurse Practitioner Family
DX: Z11.59 Encounter for screening for other viral diseases (principal); I10 Essential (primary) hypertension; Z11.4 Encounter for screening for human immunodeficiency virus [HIV]; N40.1 Benign prostatic hyperplasia with lower urinary tract symptoms; R35.1 Nocturia; Z12.5 Encounter for screening for malignant neoplasm of prostate
CPT/HCPCS: 36415; 80048; 84153; 86803; 87389

== ENCOUNTER 2023-04-14 16:21 | Outpatient (CLI) | payer MEDICARE, SELFPAY ==
--- NOTE | 2023-04-14 16:15 | RT.EKG_ITS ---
APPROVED REPORT Exam: Resting ECG Reason for Exam: Dizziness Patient Location: O HR:77 bpm ECG Measurements Heart Rate 77 AXIS ND 179 P 23 QRSd 106 QRS 3 QT 389 T 42 QTc 441 Conclusion Sinus arrhythmia...V-rate 69- 84, variation>10% Ventricular premature complex...V complex w/ short R-R interval Borderline T wave abnormalities...T/QRS ratio < 1/20 or flat T I have reviewed and interpreted ECG and agree with software generated interpretation.
== END 2023-04-14 16:22 | disposition home or self-care (01) ==
LOC: DI.CM 16:22
PROVIDERS: PCP Nurse Practitioner Family; Visit Provider Family Medicine
DX: R42 Dizziness and giddiness (principal)
CPT/HCPCS: 93010

== ENCOUNTER 2023-07-13 10:52 | Outpatient (REF) | payer MEDICARE, SELFPAY ==
[2023-07-13 21:14] LABS: ALT 31 U/L (16-63); AST 20 U/L (15-37); Alkaline Phosphatase 89 U/L (46-116); Anion Gap 14.7 mmol/L (3-11); BUN 21 mg/dL (7-18); Bilirubin, Total 0.5 mg/dL (0.2-1.0); CO2 23.3 mmol/L (21.0-32.0); CREATININE 0.9 mg/dL (0.70-1.30); Calcium 8.9 mg/dL (8.5-10.1); Chloride 102 mmol/L (98-107); Estimated GFR 96.57 (mL/min/1.73m2); Glucose 157 mg/dL (74-106); Potassium 3.9 mmol/L (3.5-5.1); Sodium 140 mmol/L (136-145); Total Protein 7.5 g/dL (6.4-8.2)
[2023-07-14 20:20] LABS: PSA, Screening 0.5 ng/mL (<=4.5)
== END 2023-07-13 10:53 | disposition home or self-care (01) ==
LOC: NCHCN 10:52
PROVIDERS: PCP Nurse Practitioner Family; Visit Provider Nurse Practitioner Family
DX: R33.8 Other retention of urine (principal); Z12.5 Encounter for screening for malignant neoplasm of prostate; R10.13 Epigastric pain
CPT/HCPCS: 80053; 84153

== ENCOUNTER → 2023-07-20 04:02 | Outpatient (CLI) | payer MEDICARE, SELFPAY ==
--- NOTE | 2023-07-20 07:00 | DI.US_ITS ---
Exam(s) US ABDOMEN LIMITED EXAM: US ABDOMEN LIMITED CLINICAL HISTORY: concern for gallstones,postprandial epigastric pain,r10.13 TECHNIQUE: Ultrasound abdomen performed using standard protocol. COMPARISON: CT ABD PELVIS WITH CONTRAST from 09/24/2011 FINDINGS: PANCREAS: Normal where visualized. LIVER: There is diffuse increased echogenicity of the liver consistent with fatty infiltration. Hepa topetal flow in the Portal Vein. The liver measures in 21.5 cm length. No evidence of a hepatic mass. GALLBLADDER:Multiple gallstones are present. No evidence of wall thickening. No pericholecystic flui d identified. There is also a noncalcified soft tissue appearing polypoid masslike area in the gallbl adder measuring 3.2 x 1.9 cm. BILIARY SYSTEM:The common bile duct could not be well visualized due to overlying bowel gas. No intr ahepatic biliary ductal dilation. CARRILLO'S SIGN: Negative. ASCITES: None seen. IMPRESSION: 1. 3.2 x 1.9 cm polypoid soft tissue mass in the gallbladder. Neoplasm versus polyp. Further evalua tion with CT scan or MRI is recommended. 2. Cholelithiasis. No biliary ductal dilatation. No sonographic evidence to suggest acute cholecyst itis. 3. Hepatomegaly and hepatic steatosis. Unexpected findings DATA REPOSITORY:
--- NOTE | 2023-07-20 07:00 | DI.US_ITS ---
Exam(s) US RENAL EXAM: US RENAL CLINICAL HISTORY: straining to void. TECHNIQUE: Florian scale, color and spectral Doppler were used. COMPARISON: CT ABD PELVIS WITH CONTRAST from 09/24/2011 FINDINGS: Renal size in cm: Right: 11.5. Left: 12.3. Echogenicity: Normal. Hydronephrosis: No. Cyst or mass: No. Nephrolithiasis: No. Other findings: None. Bladder:The urinary bladder was incompletely distended limiting evaluation. No gross abnormalities i dentified. Ureteral jets: Right: Not visualized on this examination. Left: Not visualized on this examination. Prevoid vol:56 cc Postvoid vol:The patient was unable to void during the examination. Renal color flow: Symmetric and within normal limits. IMPRESSION: 1. Unremarkable examination. 2. Limited evaluation of the urinary bladder due to decreased patient preparation. DATA REPOSITORY:
== END ==
PROVIDERS: PCP Nurse Practitioner Family; Visit Provider Nurse Practitioner Family
DX: R10.13 Epigastric pain (principal)
CPT/HCPCS: 76770; 76705

== ENCOUNTER → 2023-07-28 04:20 | Outpatient (CLI) | payer MEDICARE, SELFPAY ==
[2023-07-28] MEDS: Barium Sulfate 2% W/V-Creamy Vanilla Smoothie 450 ML BTL PO ×2 (11:01→11:02)
[2023-07-28] MEDS: Omnipaque 350 MG/ML 500 ML BTL-Imaging package 100 ML IJ (13:12)
[2023-07-28] MEDS: Normal Saline - Diluent 50 ML VIAL IJ (13:18)
--- NOTE | 2023-07-28 13:19 | DI.CT_ITS ---
Exam(s) CT ABDOMEN PELVIS W EXAM: CT ABDOMEN PELVIS W CLINICAL HISTORY: f/u US,GB MASS,K82.8. TECHNIQUE: Imaging Protocol: Axial computed tomography images with coronal and sagittal reformatted images were created and reviewed CONTRAST MATERIAL: Intravenous: Omnipaque-350 100cc Oral: Yes. Oral contrast was also administered for bowel opacification. COMPARISON: CT ABD PELVIS WITH CONTRAST from 09/24/2011 US US ABDOMEN LIMITED from 07/20/2023 FINDINGS: VISUALIZED LUNG BASES: No nodules nor pleural effusions evident. ABDOMEN: There is no ascites. LIVER: There are no focal hepatic lesions evident. No dilated intrahepatic ducts. GALLBLADDER/BILIARY: Gallbladder size is upper normal. There is no gallbladder wall edema nor perich olecystic fluid. There is very subtle density in the gallbladder fundus level. The multiple calculi seen on ultrasound are less conspicuous on CT scan (as is often the case). The finding described on the ultrasound is a possible soft tissue mass appears to be towards the fundus. CBD is not dilated. PANCREAS: No evidence of pancreatic mass nor dilatation of the pancreatic duct. SPLEEN: Spleen is not enlarged. No obvious intrasplenic lesions. Splenic and portal veins are paten t. ADRENALS: There are no significant adrenal masses. KIDNEYS:There is a small cortical cyst in the right kidney measuring 0.9 cm. Does not require furthe r workup. No solid masses in the kidneys and no calculi nor hydronephrosis. No hydroureter. No obv ious abnormalities in the urinary bladder.. ABDOMINAL AORTA: Abdominal aorta is not enlarged. LYMPH NODES:There is no retroperitoneal nor paraaortic adenopathy. ABDOMINAL WALL: No evidence of significant anterior abdominal wall nor inguinal hernia. GI: There is no evidence of bowel obstruction, free air, nor abscess. PELVIS: GI: No evidence of appendicitis.There is extensive sigmoid diverticulosis. No evidence of obvious ac [place] diverticulitis. LYMPH NODES: There is no intrapelvic nor inguinal adenopathy. REPRODUCTIVE: Prostate not enlarged. Seminal vesicles unremarkable. URINARY BLADDER: No calculi nor obvious masses evident OSSEOUS: No fractures and no significant osseous lesions. Increased density on the iliac side of both sacroiliac joints noted which probably indicates element of sacroiliitis. There is no ankylosis of the SI joints. Moderate disc space narrowing at L5-S1 lev el noted. IMPRESSION: 1. There is subtle density in the gallbladder lumen which probably corresponds to the soft tissue fin ding described on the recent ultrasound. However, the contents of the gallbladder lumen are signific antly better seen in this case with ultrasound than on the CT scan. Indeed, the multiple calculi see n on the ultrasound are not visible on CT scan. Nevertheless, on the CT scan week and determined ehsan t there is no mass groin through the pancreas and no abnormality in the adjacent liver. 2. Extensive sigmoid diverticulosis. No evidence of acute diverticulitis. Also no evidence of acute appendicitis. RADIATION DOSE DELIVERED: 1,764.6mGy.cm Total DLP DATA REPOSITORY: All CT scans at this facility are submitted to the National Radiology Data Registry (NRDR) Dose Index Registry (DIR) with the [employer] (ACR). RADIATION OPTIMIZATION: All CT scans at this facility use at least one of these dose optimization te chniques: automated exposure control; mA and/or kV adjustment per patient size (includes targeted exa ms where dose is matched to clinical indication); or iterative reconstruction.
== END ==
PROVIDERS: PCP Nurse Practitioner Family; Visit Provider Nurse Practitioner Family
DX: K82.8 Other specified diseases of gallbladder (principal)
CPT/HCPCS: 74177

== ENCOUNTER 2023-08-15 08:56 | Emergency (ER) | payer MEDICARE, SELFPAY ==
[2023-08-15] VITALS (28 sets, daily range): BP systolic 116–148; BP diastolic 63–83; PULSE 55–82; RESP 11–21; TEMP 35.9–36.4; O2SAT 88–100
--- NOTE | 2023-08-15 09:00 | RT.EKG_ITS ---
APPROVED REPORT Exam: Resting ECG Reason for Exam: Dizzy, Lightheadedness Patient Location: E HR:68 bpm ECG Measurements Heart Rate 68 AXIS WV 182 P 49 QRSd 110 QRS 21 QT 398 T 19 QTc 422 Conclusion Sinus rhythm...normal P axis, V-rate 60- 99 sinus rhythm, normal axis, normal intervals, non ischemic
--- NOTE | 2023-08-15 09:30 | DI.RAD_ITS ---
Exam(s) XR CHEST 2V PA LATERAL EXAM: XR CHEST 2V PA LATERAL CLINICAL HISTORY: upper abd pain. TECHNIQUE: 2D digital imaging was performed. COMPARISON: No exams were available for comparison FINDINGS: 2 views: Heart size is normal. The mediastinum is not widened. Lungs are clear. No infiltrates nor pleural effusions. IMPRESSION: No acute pulmonary findings. DATA REPOSITORY: RADIATION DOSE DELIVERED:
--- NOTE | 2023-08-15 09:33 | ED.GENADUL_ITS ---
Discharge Plan Disposition Patient Disposition: Home Condition: Improving Discharge Details Chief Complaint: Abd Prob Clinical Impression: Biliary colic Primary Care Provider: Roland Owen ED Provider: Arthur Henao Home Meds and New Rx's Prescriptions: No Action (DME) lancets 28 gauge misc 1 ea Miscellaneous DAILY Qty: 100 3RF Rx Instructions: One daily (DME) blood-glucose meter [OneTouch Verio Flex meter] Misc See Rx Instructions .ROUTE .MEDSUPPLY Qty: 1 0RF Rx Instructions: Use Daily tamsulosin [Flomax] 0.4 mg capsule 0.4 mg PO QHS Qty: 90 4RF cholecalciferol (vitamin D3) 1,000 unit capsule 1,000 unit PO DAILY cyanocobalamin (vitamin B-12) 1,000 mcg capsule 1,000 mcg PO DAILY Qty: 90 4RF albuterol sulfate 90 mcg/actuation HFA aerosol inhaler 2 puff IH Q6H PRN (Reason: shortness of breath or wheezing) Qty: 8.5 4RF (DME) OneTouch Verio test strips Strip See Rx Instructions .ROUTE .MEDSUPPLY Qty: 100 4RF Rx Instructions: One Daily fluticasone propionate 50 mcg/actuation spray,suspension 1 spray MIKE DAILY Qty: 19.8 4RF losartan 100 mg tablet 100 mg PO DAILY Qty: 90 4RF hydrochlorothiazide 25 mg tablet 25 mg PO DAILY Qty: 90 4RF metformin 500 mg tablet 500 mg PO BID Qty: 180 4RF sildenafil 100 mg tablet 100 mg PO ONCE Qty: 7 2RF Rx Instructions: administer 30 minutes to 4 hours before activity Discharge Instructions Instructions: Biliary Colic (ED) Additional Instructions: Please follow-up with general surgery team as well as primary care physician. Return to the emergency department for any worsening symptoms HPI General Date/Time Provider Initiated Documentation: 08/15/23 08:58 . HPI Narrative: 62-year-old male history of prior issues with his gallbladder presents with upper abdominal discomfort burning sensation that began shortly after eating associated with lightheaded flushed feeling patient brought himself to the ground unclear whether he lost consciousness, denies head injury chest pain or other systemic symptoms. No history of coronary disease thromboembolic disease or stroke. Related Data Home Medications Medication Instructions Recorded Confirmed cholecalciferol (vitamin D3) 25 1,000 unit PO DAILY 04/25/18 08/15/23 mcg (1,000 unit) capsule cyanocobalamin (vitamin B-12) 1,000 mcg PO DAILY #90 caps 11/21/18 08/15/23 1,000 mcg capsule blood-glucose meter (OneTouch #1 ea 11/17/21 08/15/23 Verio Flex Meter) lancets 28 gauge #100 ea 11/17/21 08/15/23 albuterol sulfate 90 mcg/actuation 2 puff inhalation Q6H PRN 02/08/22 08/15/23 aerosol inhaler shortness of breath or wheezing #8.5 grams blood sugar diagnostic (OneTouch #100 ea 02/08/22 08/15/23 Verio test strips) fluticasone propionate 50 1 spray intranasal DAILY #19.8 02/08/22 08/15/23 mcg/actuation nasal grams spray,suspension hydrochlorothiazide 25 mg tablet 25 mg PO DAILY #90 tabs 05/09/23 08/15/23 losartan 100 mg tablet 100 mg PO DAILY #90 tabs 05/09/23 08/15/23 metformin 500 mg tablet 500 mg PO BID #180 tabs 07/04/23 08/15/23 tamsulosin 0.4 mg capsule (Flomax) 0.4 mg PO QHS #90 caps 07/13/23 08/15/23 sildenafil 100 mg tablet 100 mg PO ONCE #7 tabs 07/18/23 08/15/23 Previous Rx's Medication Instructions Recorded cyanocobalamin (vitamin B-12) 1,000 mcg PO DAILY #90 caps 11/21/18 1,000 mcg capsule blood-glucose meter (OneTouch #1 ea 11/17/21 Verio Flex Meter) lancets 28 gauge #100 ea 11/17/21 albuterol sulfate 90 mcg/actuation 2 puff inhalation Q6H PRN 02/08/22 aerosol inhaler shortness of breath or wheezing #8.5 grams blood sugar diagnostic (OneTouch #100 ea 02/08/22 Verio test strips) fluticasone propionate 50 1 spray intranasal DAILY #19.8 02/08/22 mcg/actuation nasal grams spray,suspension hydrochlorothiazide 25 mg tablet 25 mg PO DAILY #90 tabs 05/09/23 losartan 100 mg tablet 100 mg PO DAILY #90 tabs 05/09/23 metformin 500 mg tablet 500 mg PO BID #180 tabs 07/04/23 tamsulosin 0.4 mg capsule (Flomax) 0.4 mg PO QHS #90 caps 07/13/23 sildenafil 100 mg tablet 100 mg PO ONCE #7 tabs 07/18/23 Allergies Allergy/AdvReac Type Severity Reaction Status Date / Time GOLDENROD Allergy Other (See Uncoded 08/15/23 08:59 Comment) General Stated Complaint: Abd Prob CITLALI: 3 Review of Systems Narrative: Review of Systems Constitutional: negative Eyes: negative ENT: negative Cardiovascular: negative Respiratory: negative Gastrointestinal: Abdominal discomfort : negative Musculoskeletal: negative Skin: negative Neurologic: negative Psych: negative Exam Narrative Exam Narrative: Physical Examination General: alert, awake, cooperative, resting comfortably, no acute distress HEENT: normocephalic, atraumatic; PERRL, EOM intact, conjunctiva normal; no nasal discharge; moist mucous membranes, oral and pharyngeal mucosa normal, tolerating secretions Neck: supple, trachea midline; full ROM Chest: normal to inspection Respiratory: normal respiratory effort, speaking in full sentences, clear to auscultation, no wheezing, rales or rhonchi Cardiac: regular rate, regular rhythm, S1S2 intact, no murmurs rubs or gallops GI: abdomen soft, non-tender, non-distended; no palpable mass or hepatosplenomegaly Skin: no lesions, rashes or trauma appreciated Neuro: AAOx3, normal speech, moving all extremities Psych: Appropriate mood and affect Course Vital Signs Vital signs: Vital Signs Temperature 35.9 C L 08/15/23 09:00 Pulse 79 08/15/23 09:00 Respiratory Rate 16 08/15/23 09:00 Blood Pressure 116/65 08/15/23 09:00 Pulse Oximetry 100 08/15/23 09:00 Temperature 35.9 C L 08/15/23 09:00 Temperature Source Temporal Artery Scan 08/15/23 09:00 Pulse 79 08/15/23 09:00 Respiratory Rate 16 08/15/23 09:00 Blood Pressure 116/65 08/15/23 09:00 Blood Pressure Position Sitting 08/15/23 09:00 Pulse Oximetry 100 08/15/23 09:00 Oxygen Delivery Method Room Air 08/15/23 09:00 Oxygen Flow Rate 0 08/15/23 09:00 Pain Level 5 08/15/23 09:07 Medical Decision Making 62-year-old male presents with resolving upper abdominal discomfort burning sensation that began shortly after eating felt flushed and hot as well as lightheaded, brought himself to the ground, symptoms resolving on arrival no chest pain no vomiting, no history of coronary disease or thromboembolic disease. Abdomen soft nontender nondistended afebrile nontoxic hemodynamically stable. Consider biliary colic versus early cholecystitis versus gastritis lower suspicion for pancreatitis or appendicitis, muscles consider atypical ACS lower suspicion for PE or aortic pathology given history and physical, will obtain basic labs EKG screening chest x-ray, CT abdomen pelvis with contrast fluids analgesia antiemetics close reassessment 12: 44 patient resting notably no acute distress. Hemodynamically stable. Evidence of gallstones and gallbladder polyps as seen on recent ultrasound. No evidence of cholecystitis. Patient will be given close follow-up with surgical team to discuss possible elective cholecystectomy. Home care instructions and return precautions given Quality:SDOH Health Related Social Needs: No Data to Display PFSH All Active Problems (Updated 08/15/23 @ 12:45 by Arthur Henao MD) Biliary colic (Acute) Gallstone (Acute) Gallbladder mass (Acute) Postprandial epigastric pain (Acute) Type 2 diabetes mellitus (Acute) Screening for prostate cancer (Acute) Difficult airway for intubation (Acute) 08/27: 100 mm OPA, two person mask ventilation. [place] 4, grade 1, easy intubation. 2010 hernia started with LMA, but was switched to ETT intraoperative per surgeon request. Difficulty was seemingly encountered at this stage. Hernia repair was performed/completed. No additional information available. 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 STATED THEY COULDNT GET THE TUBE DOWN HIS THROAT. Knee pain, bilateral Screening cholesterol level Encounter for annual physical exam History of tobacco use Quit 1996pack year smoker prior Urinary frequency (08/15/15) Sensorineural hearing loss, bilateral (01/04/14) Cyanocobalamin deficiency Knee injury DR. AHMADI; OCCUPATION THERAPY AND PT; RIGHT KNEE Fatigue Essential hypertension (03/30/13) Erectile dysfunction (10/18/13) Diabetes mellitus (02/11/14) Allergic rhinitis (03/14/12) Surgical History History of colonoscopy (~10/2021) Repair of umbilical hernia (~09/2010) ventral and umbilical Family History Mother Depression Father Depression Grandfather Depression Grandmother Depression Maternal Family History Alcohol abuse Depression Social History Smoking/Tobacco Use Status: Former Tobacco Use tobacco type: cigarettes Quit Date: 03/07/96 Pack-years: 20 Tobacco: How many years used: 20 Second Hand Exposure: Yes Smoking risk assessment performed?: Yes Alcohol Intake: former Drug use: Never Substance use type: does not use Counseling given: No Counseling provided: none Adopted: No Caregiver/Support person: No Foster care: No Household members: spouse Housing: house Number of Children: 5 number of grandchildren: 9 Communication Needs: Hard of Hearing and Corrective Lenses Education Level: high school Do you need help understanding health information?: Never current occupation: retired Pets and animals: Yes Pets and animals: dog(s) Sexually active: Yes Do you think of yourself as: straight/heterosexual Current gender identity: male What is your relationship status?: How often do you talk on the phone with friends or family?: once per week How often do you get together with friends or relatives?: once per week Do you belong to any clubs or organized social groups?: no Panel score (0-1 are the most socially isolated patients): 1 What type of physical activity do you participate in: other Details: Yard maintenance,gardening Duration: > 90 minutes/day Frequency: 3-4 times per week Carrol/Presybeterian: None Special carrol needs: No Agree to transfusion: Yes Seatbelt use: always Helmet use: Yes Helmet use: always Drive intox or ride w/intox 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
[2023-08-15] MEDS: ACETAMINOPHEN 1,000 MG/100 ML BTL 400 MG IVPB (09:42)
[2023-08-15] MEDS: Ondansetron 4 MG/2 ML VIAL IVP (09:43)
[2023-08-15] MEDS: Normal Saline 500 ML 1000 ML IV (09:44)
[2023-08-15 09:56] LABS: Abs Immature Grans 0.03 10^3/uL (0.0-0.06); Absolute Basophil Count 0.05 10^3/uL (0.0-0.2); Absolute Eosinophil Count 0.32 10^3/uL (0.0-0.7); Absolute Lymphocyte Count 1.83 10^3/uL (1.2-3.4); Absolute Monocyte Count 0.64 10^3/uL (0.1-0.8); Absolute Neutrophil Count 6.94 10^3/uL (1.2-6.7); Basophils % 0.5 %; Eosinophils % 3.3 %; HCT 40.8 % (40.0-50.0); HGB 13.9 g/dL (13.5-17.5); Immature Grans % 0.3 %; Lymphocytes % 18.7 %; MCH 29.5 pg (27.0-33.0); MCHC 34.1 % (32.0-36.0); MCV 87 fL (80-95); MPV 11.3 fL (8.0-11.0); Monocytes % 6.5 %; Neutrophils % 70.7 %; Platelet Count 260 10^3/uL (130-400); RBC 4.71 10^6/uL (4.36-5.78); WBC 9.81 10^3/uL (4.4-10.8)
[2023-08-15 10:09] LABS: INR 1.1 (0.9-1.1); PTT Activated 22.3 sec (23.6-32.8)
[2023-08-15 10:26] LABS: ALT 36 U/L (16-63); AST 30 U/L (15-37); Albumin 3.6 g/dL (3.4-5.0); Alkaline Phosphatase 79 U/L (46-116); Anion Gap 13.4 mmol/L (3-11); BUN 21 mg/dL (7-18); Bilirubin, Total 0.6 mg/dL (0.2-1.0); CO2 22.6 mmol/L (21.0-32.0); Calcium 8.8 mg/dL (8.5-10.1); Chloride 103 mmol/L (98-107); Glucose 174 mg/dL (74-106); Lipase 57 U/L (16-77); Magnesium 1.6 mg/dL (1.8-2.4); NT-proBNP 78 pg/mL (<300); Potassium 3.4 mmol/L (3.5-5.1); Sodium 139 mmol/L (136-145); TSH (W/Ref FT4) 3.64 uIU/mL (0.36-3.74); Total Protein 6.9 g/dL (6.4-8.2); Troponin I < 50 ng/L (< or =60)
[2023-08-15] MEDS: Omnipaque 350 MG/ML 100 ML BTL IJ (10:56)
[2023-08-15] MEDS: Normal Saline - Diluent 50 ML VIAL IJ (10:57)
--- NOTE | 2023-08-15 11:08 | DI.CT_ITS ---
Exam(s) CT ABDOMEN PELVIS W EXAM: CT ABDOMEN PELVIS W CLINICAL HISTORY: upper abd pain, lightheadedness, hx gal issues. TECHNIQUE: Imaging Protocol: Axial computed tomography images with coronal and sagittal reformatted images were created and reviewed CONTRAST MATERIAL: Intravenous: Omnipaque-350 100cc Oral: None COMPARISON: US US ABDOMEN LIMITED from 07/20/[address] ABDOMEN PELVIS W from 07/28/2023 FINDINGS: VISUALIZED LUNG BASES: No nodules nor pleural effusions evident. ABDOMEN: There is no ascites. LIVER: There are no focal hepatic lesions evident. No dilated intrahepatic ducts. GALLBLADDER/BILIARY: Subtle noncalcified density in the gallbladder fundus is noted. Recent ultrasou nd revealed both multiple gallstones and possible mass in the gallbladder, this significantly better revealed on ultrasound compared to CT scan. The CBD is not dilated. PANCREAS: No evidence of pancreatic mass nor dilatation of the pancreatic duct. SPLEEN: Spleen is not enlarged. No obvious intrasplenic lesions. Splenic and portal veins are paten t. ADRENALS: There are no significant adrenal masses. KIDNEYS:Small benign cortical cyst in the posterior aspect of the right kidney is again noted, measur ing 8 mm. Does not require further investigation. There are no significant solid renal masses. Ano ther small cyst measuring 6 mm is noted in the anterior cortex of the left kidney, also not requiring further investigation. There are no radiopaque renal calculi. No hydronephrosis. No hydroureter. No significant focal findings in the nondistended urinary bladder.. ABDOMINAL AORTA: Abdominal aorta is not enlarged. LYMPH NODES:There is no retroperitoneal nor paraaortic adenopathy. ABDOMINAL WALL: No evidence of significant anterior abdominal wall nor inguinal hernia. GI: There is no evidence of bowel obstruction, free air, nor abscess. PELVIS: GI: No evidence of appendicitis.There is sigmoid diverticulosis. No obvious acute diverticulitis. LYMPH NODES: There is no intrapelvic nor inguinal adenopathy. REPRODUCTIVE: Prostate size normal. Seminal vesicles unremarkable. URINARY BLADDER: No calculi nor obvious masses evident OSSEOUS: No fractures and no significant osseous lesions. IMPRESSION: 1. Subtle density in the gallbladder again noted. Recent ultrasound exam better showed both a combin ation of gallstones and polyps or other type mass in the gallbladder lumen. The CBD is not dilated. Consider MRI here. 2. Sigmoid diverticulosis without evidence of obvious acute diverticulitis. 3. No evidence of acute appendicitis. RADIATION DOSE DELIVERED: 1,648.16mGy.cm Total DLP DATA REPOSITORY: All CT scans at this facility are submitted to the National Radiology Data Registry (NRDR) Dose Index Registry (DIR) with the [employer] (ACR). RADIATION OPTIMIZATION: All CT scans at this facility use at least one of these dose optimization te chniques: automated exposure control; mA and/or kV adjustment per patient size (includes targeted exa ms where dose is matched to clinical indication); or iterative reconstruction.
== END 2023-08-15 12:51 | disposition home or self-care (01) ==
PROVIDERS: Emergency Provider Emergency Medicine; PCP Nurse Practitioner Family
DX: K80.20 Calculus of gallbladder without cholecystitis without obstruction (principal); I10 Essential (primary) hypertension; E11.9 Type 2 diabetes mellitus without complications; Z79.84 Long term (current) use of oral hypoglycemic drugs; Z87.891 Personal history of nicotine dependence
CPT/HCPCS: 36415; 80053; 83690; 93005; 96365; 96375; 99285; 71046; 74177; 83735; 83880; 84443; 84484; 85025; 85610; 85730; 93010; 99284; J0131; J2405; J3490

== ENCOUNTER → 2023-08-25 10:50 | Outpatient (BNVA) | payer MEDICARE, SELFPAY | PROVIDERS: PCP Nurse Practitioner Family; Referring Provider Nurse Practitioner Family; Visit Provider Student in an Organized Health Care Education/Training Program | DX: K82.9 Disease of gallbladder, unspecified (principal) | CPT/HCPCS: 99214 ==

== ENCOUNTER 2023-09-05 07:44 | Day surgery (SDC) | payer MEDICARE, SELFPAY ==
[2023-09-05] VITALS (34 sets, daily range): BP systolic 80–147; BP diastolic 41–87; PULSE 49–75; RESP 8–29; TEMP 36.1–36.6; O2SAT 86–98; BMI 37.6
--- NOTE | 2023-09-05 08:31 | W.ANESPRE ---
General Info Date of Service Date Performed: 09/05/23 Height: 5 ft 10 in Weight: 119.1 kg Body Mass Index (BMI): 37.6 Surgical Procedure: Operation Date: 09/05/23 09:10 Proposed Procedure Side Surgeon p Cholecystectomy Laparoscopic Mulugeta Johnson MD Meds Allergies and Home Medications Allergies Allergy/AdvReac Type Severity Reaction Status Date / Time GOLDENROD Allergy Other (See Uncoded 09/05/23 08:10 Comment) Home Medication Medication Instructions Recorded cholecalciferol (vitamin D3) 25 1,000 unit PO DAILY 04/25/18 mcg (1,000 unit) capsule cyanocobalamin (vitamin B-12) 1,000 mcg PO DAILY #90 caps 11/21/18 1,000 mcg capsule blood-glucose meter (OneTouch #1 ea 11/17/21 Verio Flex Meter) lancets 28 gauge #100 ea 11/17/21 albuterol sulfate 90 mcg/actuation 2 puff inhalation Q6H PRN 02/08/22 aerosol inhaler shortness of breath or wheezing #8.5 grams blood sugar diagnostic (OneTouch #100 ea 02/08/22 Verio test strips) fluticasone propionate 50 1 spray intranasal DAILY #19.8 02/08/22 mcg/actuation nasal grams spray,suspension hydrochlorothiazide 25 mg tablet 25 mg PO DAILY #90 tabs 05/09/23 losartan 100 mg tablet 100 mg PO DAILY #90 tabs 05/09/23 metformin 500 mg tablet 500 mg PO BID #180 tabs 07/04/23 tamsulosin 0.4 mg capsule (Flomax) 0.4 mg PO QHS #90 caps 07/13/23 sildenafil 100 mg tablet 100 mg PO ONCE #7 tabs 07/18/23 ibuprofen 600 mg tablet (IBU) 600 mg PO ONCE 09/05/23 Current Visit Medications: Current Medications Generic Name Dose Route Start Last Admin Trade Name Freq PRN Reason Stop Dose Admin Acetaminophen 1,000 mg 09/05/23 06:00 Acetaminophen 500 Mg Tab PO 09/05/23 23:59 PREOP ISABELLE Ringer's Solution 1,000 mls @ 80 mls/hr 09/05/23 06:00 IV 09/05/23 23:59 INFUSION ISABELLE Cefazolin Sodium/Dextrose 2 gm in 50 mls @ 100 mls/hr 09/05/23 06:00 Ancef Duplex IVPB 09/05/23 23:59 PREOP ISABELLE IV Miscellaneous Supplies 1 each 09/05/23 06:00 Iv Access IV 09/05/23 23:59 DIRECTED ISABELLE Sodium Chloride 0 ml 09/05/23 06:00 Normal Saline Flush 10 Ml Syr IV 09/05/23 23:59 PRN PRN Sodium Chloride 0 ml 09/05/23 06:00 Normal Saline 10 Ml Vial IJ 09/05/23 23:59 DIRECTED PRN Sterile Water 0 ml 09/05/23 06:00 Water,Injection,Sterile 10 Ml Vial IJ 09/05/23 23:59 DIRECTED PRN PFSH Active Problems Active Problems: Problem Status Onset Code Biliary colic K80.50 Gallstone K80.20 Gallbladder mass K82.8 Postprandial epigastric pain R10.13 Type 2 diabetes mellitus E11.9 Screening for prostate cancer Z12.5 Difficult airway for intubation T88.4XXA Right rotator cuff tear M75.101 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 STATED THEY COULDNT GET THE TUBE DOWN HIS THROAT. Knee pain, bilateral Screening cholesterol level Encounter for annual physical exam Type II diabetes mellitus, uncontrolled MF dec. to 500 BID (did not do 12/2020) History of tobacco use Quit 1996 - pack year smoker prior Urinary frequency (08/15/15) Sensorineural hearing loss, bilateral (01/04/14) Cyanocobalamin deficiency Knee injury DR. AHMADI; OCCUPATION THERAPY AND PT; RIGHT KNEE Fatigue Essential hypertension (03/30/13) Erectile dysfunction (10/18/13) Diabetes mellitus (02/11/14) Allergic rhinitis (03/14/12) Medical History Comments:: PER PT. DIFFICULT AIRWAY DURING UMBILICAL HERNIA REPAIR Surgical History Surgical History Hx of repair of right rotator cuff History of colonoscopy (~10/2021) Repair of umbilical hernia (~09/2010) ventral and umbilical Tobacco Smoking/Tobacco Use Status: Former Tobacco Use Passive smoking exposure: Yes Second hand exposure: Yes Alcohol Alcohol Intake: former Substance Use Substance use: Never Substance use type: does not use Counseling provided: none Vital Signs and Lab Results Vital Signs Most Recent Vital Signs in EMR: Most Recent Vital Signs Temp Pulse Resp BP Pulse Ox 36.6 C 67 18 128/61 95 09/05/23 08:19 09/05/23 08:19 09/05/23 08:19 09/05/23 08:19 09/05/23 08:19 Lab Results Blood Type / Crossmatch: No Data to Display Complete Blood Count: White Blood Count 9.81 10^3/uL (4.4-10.8) 08/15/23 09:50 Red Blood Count 4.71 10^6/uL (4.36-5.78) 08/15/23 09:50 Hemoglobin 13.9 g/dL (13.5-17.5) 08/15/23 09:50 Hematocrit 40.8 % (40.0-50.0) 08/15/23 09:50 Platelet Count 260 10^3/uL (130-400) 08/15/23 09:50 Complete Metabolic Panel: Sodium 139 mmol/L (136-145) 08/15/23 09:50 Potassium 3.4 mmol/L (3.5-5.1) L 08/15/23 09:50 Chloride 103 mmol/L (98-107) 08/15/23 09:50 Carbon Dioxide 22.6 mmol/L (21.0-32.0) 08/15/23 09:50 BUN 21 mg/dL (7-18) H 08/15/23 09:50 Creatinine 1.0 mg/dL (0.70-1.30) 08/15/23 09:50 Est GFR (CKD-EPI 2020) 85.10 (mL/min/1.73m2) 08/15/23 09:50 Magnesium 1.6 mg/dL (1.8-2.4) L 08/15/23 09:50 Calcium 8.8 mg/dL (8.5-10.1) 08/15/23 09:50 Albumin 3.6 g/dL (3.4-5.0) 08/15/23 09:50 Glucose 174 mg/dL (74-106) H 08/15/23 09:50 Liver Function Panel: Alanine Aminotransferase (ALT/SGPT) 36 U/L (16-63) 08/15/23 09:50 Aspartate Amino Transf (AST/SGOT) 30 U/L (15-37) 08/15/23 09:50 Coagulation Panel: INR International Normalized Ratio 1.1 (0.9-1.1) 08/15/23 09:50 Prothrombin Time 11.0 sec (9.1-11.1) 08/15/23 09:50 Activated Partial Thromboplast Time 22.3 sec (23.6-32.8) L 08/15/23 09:50 Cardiac Panel: Troponin I < 50 ng/L (< or =60) 08/15/23 NT-Pro-B Natriuret Pep 78 pg/mL (<300) 08/15/23 Arterial Blood Gas: No Data to Display Venous Blood Gas: No Data to Display Pancreas Panel: Lipase 57 U/L (16-77) 08/15/23 09:50 Thyroid Panel: Thyroid Stimulating Hormone (TSH) 3.64 uIU/mL (0.36-3.74) 08/15/23 09:50 Infectious Disease: No Data to Display Blood Cultures: No Data to Display Toxicology Panel: No Data to Display Imaging and Studies Imaging and Studies Study information below may be from another EMR and interpreted by another provider. Please see original notes in EMR for more complete details. EKG Summary: Conclusion Sinus rhythm...normal P axis, V-rate 60- 99 sinus rhythm, normal axis, normal intervals, non ischemic 08/15/23 Pulmonary Function Summary: 03/2014: normal. Anesthesia Assessment and Plan Anesthesia History Personal History: Other (Documented difficult airway with hernia surgery, no issues with recent Rotator Cuff repair, 2 hand mask, grade I view with Glidescope 4) Family History: No Family History of Anesthesia Complications Exercise Tolerance Exercise Tolerance: Metabolic Equivalents>4 Pertinent Negatives Pertinent Negatives: No Symptoms of GERD, No Major Cardiovascular Symptoms or Complaints, No Major Pulmonary Symptoms or Complaints and No History of CVA/TIA Cardiac & Pulmonary Exam Cardiac Exam: Normal S1/S2 Heart Sounds (occ irregular beat) Pulmonary Exam: Clear Bilateral Breath Sounds Implantable Cardiac Device Does patient have a Pacemaker or an ICD?: No Airway Exam Known Difficult Airway: No Mallampati Class: 4 Mouth Opening: Narrow (< 3cm) Thyromental Distance: Less than 3 cm Neck Range of Motion: Limited ROM Neck Circumference: Thick Teeth Condition: Normal Dentition ASA Classification ASA Score: ASA 3 Emergency Case?: No NPO Status NPO Status: NPO Clears >2 hours, Solids >8 hours Anesthesia Plan Resuscitation Status: Full Code Anesthesia Technique: General Anesthesia Airway Planned: Endotracheal Tube Monitors Used: Standard Monitors Preoperative Comments:: Documented difficult airway with hernia surgery, no issues with recent Rotator Cuff repair, 2 hand mask, grade I view with Glidescope 4
[2023-09-05] MEDS: Acetaminophen 500 MG TAB 1000 MG PO (08:40)
[2023-09-05] MEDS: Lactated Ringers 1,000 ML 80 ML IV (08:40)
[2023-09-05] MEDS: Heparin 5,000 UNITS/ML VIAL 5000 UNITS SC (08:59)
[2023-09-05] MEDS: ceFAZolin 2 GM/50 ML BAG IVPB (09:41)
[2023-09-05] MEDS: Bupivacaine 0.25% Pres-Free 30 ML VIAL (09:55)
--- NOTE | 2023-09-05 10:00 | GB_PTH ---
PATIENT: Giles Pittman LOC: [facility] U#:[id number] AGE/SX: 62/M ROOM: RE09/05/[address]: Mulugeta Johnson : 1960 BED: DIS: 09/05/2023 SPEC #: [id number] RECD: 09/05/23 13:00 STATUS: SREE MELGAR #: [id number] ARIS: 09/05/23 10:[address]: Mulugeta Johnson DEPT: Surgical Specimen RECD BY: Christy Jade ENTERED: 09/05/23 13:01 SP TYPE: GB OTHR DR: Roland Escobar DNP Tissues: 1 - GALLBLADDER Procedures: GROSS AND MICRO LEVEL 3 Comments: [id number]
--- NOTE | 2023-09-05 10:23 | W.PM.OP ---
Date of service: 09/05/23 Time of Service: 10:23 Operative Note Operative Note Refer to Anesthesia Record Procedure Description: Procedures performed: 1. Laparoscopic cholecystectomy Pre-op diagnosis: Biliary colic Postoperative diagnosis: Same Surgeon: Juan Antonio Johnson Anesthesia: Cecy [employer] Specialist: Wolfgang Indication for procedure: 62-year-old man with gallstones and episodic epigastric pain. FINDINGS: Nondistended and overall non-inflamed gallbladder. Normal biliary anatomy Specimens: 1. Gallbladder Complications: None Blood loss: 5 cc Urine output: Not measured Implants/drains: None Procedure in detail: Patient gave written consent and was in agreement with the indications, the likely benefits as well as the potential risks of surgery. He was taken back to the operating room where anesthesia was administered which was tolerated well. The patient was positioned supine on the operating room table and we then prepped and draped in sterile fashion. We confirmed DVT prophylaxis as well as antibiotics had been administered. When we were all in agreement with our timeout we started the procedure. Local anesthetic was injected at the umbilicus. A small stab incision was made just above the umbilicus and a 5 mm trocar was used to enter the abdominal cavity through this. Insufflation was performed which was tolerated well. 2 more trocars were placed under direct visualization in the right hemiabdomen. Local anesthetic was also given in each of the sites. A 12 mm port was placed in the epigastrium under visualization. The fundus of the gallbladder was grasped and retracted towards the patient's left shoulder cephalad. This nicely exposed the biliary plate and the relevant anatomy. A combination of blunt and electrocautery dissection was performed isolating the cystic duct and the cystic artery. The entire cystic plate was cleared off confirming only 2 structures seen going into the gallbladder. These were clipped and divided. I then removed the rest of the gallbladder off the liver bed using electrocautery. It was placed in an Endo Catch bag and removed from the abdominal cavity. The specimen was passed off the back table and placed in formalin. I then checked the gallbladder fossa for any bile leaking or any bleeding. Hemostasis was excellent and there was no evidence of any bile leaking from the bed. The 12 mm port site was then closed with 0 Vicryl in the fascia using a Jeff-Mark. I rechecked for hemostasis 1 last time and it remained excellent. We released pneumoperitoneum. I removed the 5 mm trocars. The skin was closed with running Monocryl and Dermabond was placed on top of each site. Patient tolerated the procedure well. The sponge, instruments and sharps counts were correct x3 at the end of the procedure. He was extubated and taken to the PACU in hemodynamically stable condition.
--- NOTE | 2023-09-05 10:25 | W.PM.DSUDISC ---
Date of service: 09/05/23 Time of Service: 10:26 Discharge Plan Disposition Patient Disposition: Home Condition: Good Discharge Details Attending Provider: Mulugeta Johnson Primary Care Provider: Roland Owen Home Meds and New Rx's Prescriptions: No Action (DME) lancets 28 gauge misc 1 ea Miscellaneous DAILY Qty: 100 3RF Rx Instructions: One daily (DME) blood-glucose meter [OneTouch Verio Flex meter] Misc See Rx Instructions .ROUTE .MEDSUPPLY Qty: 1 0RF Rx Instructions: Use Daily tamsulosin [Flomax] 0.4 mg capsule 0.4 mg PO QHS Qty: 90 4RF cholecalciferol (vitamin D3) 1,000 unit capsule 1,000 unit PO DAILY cyanocobalamin (vitamin B-12) 1,000 mcg capsule 1,000 mcg PO DAILY Qty: 90 4RF albuterol sulfate 90 mcg/actuation HFA aerosol inhaler 2 puff IH Q6H PRN (Reason: shortness of breath or wheezing) Qty: 8.5 4RF (DME) OneTouch Verio test strips Strip See Rx Instructions .ROUTE .MEDSUPPLY Qty: 100 4RF Rx Instructions: One Daily fluticasone propionate 50 mcg/actuation spray,suspension 1 spray MIKE DAILY Qty: 19.8 4RF Patient Comments: occasiionally used losartan 100 mg tablet 100 mg PO DAILY Qty: 90 4RF hydrochlorothiazide 25 mg tablet 25 mg PO DAILY Qty: 90 4RF metformin 500 mg tablet 500 mg PO BID Qty: 180 4RF sildenafil 100 mg tablet 100 mg PO ONCE Qty: 7 2RF Rx Instructions: administer 30 minutes to 4 hours before activity ibuprofen [IBU] 600 mg tablet 600 mg PO ONCE Discharge Instructions Additional Instructions: Incisions: Keep clean and dry but they do not need to be covered. It is okay to shower but no tub bathing for 1 week. You can peel the glue off after 1 week. Activity: As tolerated. There are no restrictions. Return to work, as tolerated in the next few days. If you need a work note call the surgery office. Diet: Regular diet as tolerated Medications: Resume all of your usual/regular home medications Follow-up: Follow-up is optional. If you are having any issues or concerns call the surgery office immediately. If you want to have a routine follow-up that is perfectly fine and you can call and schedule an. If everything is otherwise going well, you do not need to follow-up. Pain control: Take Tylenol, 1000 mg, every 6 hours on a schedule for the next 3 days. You can use ibuprofen in addition to Tylenol and use the narcotic medication only as necessary for pain preventing you from sleeping. Overall: Symptoms should not be worsening. If you have any difficulty breathing or you have return of symptoms of brought you to the hospital or your pain is otherwise worsening each day and you should call the doctor's office or come into the hospital to be checked out. Activity:: Activity as Tolerated Diet:: As Tolerated
[2023-09-05] MEDS: fentaNYL 100 MCG/2 ML VIAL IVP ×2 (11:06→11:22)
--- NOTE | 2023-09-05 11:53 | W.ANESPOSTOP ---
Postoperative Evaluation Date, Time and Location Date Performed: 09/05/23 Time Performed: 11:22 Patient Location: PACU Vital Signs Most Recent Imported Vital Signs: Most Recent Vital Signs Temp Pulse Resp BP Pulse Ox 36.6 C 59 L 12 108/52 L 96 09/05/23 11:33 09/05/23 11:26 09/05/23 11:30 09/05/23 11:26 09/05/23 11:30 Pain Score Most Recent Pain Score: Most Recent Pain Score Pain Level 2 09/05/23 11:33 Assessment Mental Status: Awake (Alert & Oriented to Patient Baseline) Airway and Respiratory Function: Patent airway with normal (patient baseline) respiratory exam Cardiovascular Function: Hemodynamically Stable Hydration Status: Adequately Hydrated Nausea & Vomiting: No Nausea or Vomiting Pain: Pain is tolerable per patient Peripheral Nerve Block: Patient did not receive a nerve block
== END 2023-09-05 13:09 | disposition home or self-care (01) ==
PROVIDERS: PCP Nurse Practitioner Family; Visit Provider Student in an Organized Health Care Education/Training Program
PROC: 0FT44ZZ Resection of Gallbladder, Percutaneous Endoscopic Approach (ICD-10-PCS; CPT 47562; principal; 2023-09-05 09:00)
DX: K80.10 Calculus of gallbladder with chronic cholecystitis without obstruction
CPT/HCPCS: 47562; 00123; 88304; J0665; J0690; J1100; J1170; J1644; J1885; J2001; J2371; J2405; J2704; J3010

== ENCOUNTER 2024-01-18 02:25 | Outpatient (CLI) | payer MEDICARE, SELFPAY ==
[2024-01-18 12:25] LABS: HCT 42.8 % (40.0-50.0); HGB 13.7 g/dL (13.5-17.5); MCH 29.7 pg (27.0-33.0); MCV 93 fL (80-95); MPV 11.1 fL (8.0-11.0); Platelet Count 255 10^3/uL (130-400); RBC 4.61 10^6/uL (4.36-5.78); RDW 13.1 % (11.8-14.1); RDW-SD 44.2 fL; WBC 6.38 10^3/uL (4.4-10.8)
[2024-01-18 12:48] LABS: ALT 32 U/L (16-63); AST 20 U/L (15-37); Albumin 3.7 g/dL (3.4-5.0); Alkaline Phosphatase 76 U/L (46-116); Anion Gap 5.4 mmol/L (3-11); BUN 11 mg/dL (7-18); Bilirubin, Total 0.33 mg/dL (0.2-1.0); CO2 30.6 mmol/L (21.0-32.0); CREATININE 0.8 mg/dL (0.70-1.30); Calcium 8.7 mg/dL (8.5-10.1); Calculated LDL 78 mg/dL (<100); Chloride 107 mmol/L (98-107); Cholesterol 134 mg/dL (<200); Estimated GFR 99.44 (mL/min/1.73m2); Glucose 129 mg/dL (74-106); HDL Cholesterol 45 mg/dL (40-60); Potassium 4.2 mmol/L (3.5-5.1); Sodium 143 mmol/L (136-145); Total Protein 7.3 g/dL (6.4-8.2); Triglyceride 57 mg/dL (<150)
== END 2024-01-18 02:26 | disposition home or self-care (01) ==
LOC: LOS 02:25
PROVIDERS: PCP Nurse Practitioner Family; Visit Provider Nurse Practitioner Family
DX: G25.81 Restless legs syndrome (principal); E11.9 Type 2 diabetes mellitus without complications
CPT/HCPCS: 36415; 80053; 80061; 85027

== ENCOUNTER 2024-08-13 02:43 | Outpatient (CLI) | payer MEDICARE, SELFPAY ==
[2024-08-13] MEDS: Inhaler, Assist Device 1 EACH MC (08:48)
[2024-08-13] MEDS: Levalbuterol HFA 15 GM INH 4 PUFF IH (08:49)
--- NOTE | 2024-08-26 14:31 | W.PFT ---
Date of service: 08/13/24 Time of Service: 07:58 Pulmonary Function Test Result Indications: Dyspnea on exertion Interpretation Spirometry: No airflow limitation. No bronchodilator response. Lung Volumes: Normal lung volumes Diffusion Capacity: Normal diffusion Airway Pressure: Normal airways resistance Impression Normal pulmonary function testing Clinical Correlation therefore is recommended.
== END 2024-08-13 02:44 | disposition home or self-care (01) ==
PROVIDERS: PCP Nurse Practitioner Family; Visit Provider Student in an Organized Health Care Education/Training Program
DX: R06.09 Other forms of dyspnea (principal)
CPT/HCPCS: 94060; 94726; 94729

== ENCOUNTER 2024-09-04 07:22 | Outpatient (CLI) | payer MEDICARE, SELFPAY ==
--- NOTE | 2024-09-04 06:00 | DI.RAD_ITS ---
Exam(s) XR CHEST 2V PA LATERAL EXAM: XR CHEST 2V PA LATERAL CLINICAL HISTORY: crackles in bases,dyspnea,r06.00 TECHNIQUE: 2D digital imaging was performed. Two views. COMPARISON: CR XR CHEST 2V PA LATERAL from 08/15/2023 FINDINGS: HEART: Normal size. Aorta: Not dilated. PULMONARY VASCULATURE: Normal. MEDIASTINUM: Unremarkable. LUNGS: Clear. PLEURAL SPACE: No pleural effusion or pneumothorax. BONE:Unremarkable for age. SOFT TISSUES: Unremarkable. IMPRESSION: No acute abnormality. DATA REPOSITORY: RADIATION DOSE DELIVERED:
== END 2024-09-04 07:42 ==
LOC: DI 07:22
PROVIDERS: PCP Nurse Practitioner Family; Visit Provider Nurse Practitioner Family
DX: R06.00 Dyspnea, unspecified (principal)
CPT/HCPCS: 71046

== ENCOUNTER 2024-09-13 02:14 | Outpatient (CLI) | payer MEDICARE, SELFPAY ==
[2024-09-13] MEDS: Methacholine 100 MG VIAL IH (11:26)
[2024-09-13] MEDS: Inhaler, Assist Device 1 EACH MC (11:26)
[2024-09-13] MEDS: Albuterol HFA 18 GM 200 PUFF INH IH (11:26)
--- NOTE | 2024-10-01 09:09 | W.PFT ---
Date of service: 09/13/24 Time of Service: 09:56 Pulmonary Function Test Result Indications: Dyspnea Impression 1. Good patient effort was noted. ATS standards for reproducibility were met. 2. Normal spirometry. 3. At 4 mg/ml of methacholine, there was a 22% fall in FEV1. Conclusion: positive methacholine challenge test
== END 2024-09-13 02:15 | disposition home or self-care (01) ==
LOC: RT 02:14
PROVIDERS: PCP Nurse Practitioner Family; Referring Provider Nurse Practitioner Family; Visit Provider Internal Medicine Pulmonary Disease
DX: R06.00 Dyspnea, unspecified (principal)
CPT/HCPCS: 94070; 95070; J7674

== ENCOUNTER 2024-09-27 01:14 | Outpatient (CLI) | payer MEDICARE, SELFPAY ==
--- NOTE | 2024-09-27 06:45 | DI.US_ITS ---
APPROVED REPORT EXAM: Comprehensive 2D, Doppler, and color-flow Echocardiogram Patient Location: Out-Patient Rn Imcu: Mey Nieto RDCS (AE) Indications: Dyspnea on exertion Other Information Study Quality: Adequate Conclusion Normal left ventricular wall thickness and chamber size. Ejection fraction is 60%. Wall motion is normal Normal right ventricular size and function Both atria are normal in size Aortic valve is sclerotic and trileaflet. There is no hemodynamically significant aortic stenosis; mean gradient is 9 mmHg. Trace aortic regurgitation Mild mitral annular calcification. Trace mitral regurgitation Wall motion Left Ventricle The left ventricle is normal size. The left ventricular systolic function is normal. The left ventricular ejection fraction is within the normal range. There is normal left ventricular wall thickness. There is normal LV segmental wall motion. There is no ventricular septal defect visualized. LVEF is 57%. Right Ventricle The right ventricle is normal size. The right ventricular systolic function is normal. Atria The left atrium size is normal. The right atrium size is normal. The interatrial septum is intact with no evidence for an atrial septal defect. Aortic Valve The Aortic valve is sclerotic. Aortic valve is trileaflet. No hemodynamically significant valvular aortic stenosis. Trace aortic regurgitation. Mitral Valve Mild mitral annular calcification. No evidence of mitral valve stenosis. Trace mitral regurgitation. Tricuspid Valve The tricuspid valve is normal in structure. There is no tricuspid valve stenosis. Trace tricuspid regurgitation. Unable to assess PA pressure. Pulmonic Valve The pulmonary valve is normal in structure. There is no pulmonic valvular stenosis. There is no pulmonic valvular regurgitation. Great Vessels The aortic root is normal in size. The ascending aorta is normal in size. Aortic arch is normal in caliber. IVC is normal in size and collapses >50% with inspiration. Pericardium There is no pericardial effusion. 2D Dimensions IVSD d PLAX 1.14 cm M: 0.6-1.2 Ao Root d 3.19 cm M: 3.1 - 3.7 LVPW d PLAX 1.11 cm M: 0.6 - 1.2 Ao Asc Diam d 3.45 cm M: 2.6 - 3.4 LVID d PLAX 4.52 cm M: 4.2 - 5.8 LVDs 3.15 cm M: 2.5 - 4.0 LV EF Teichholz 57.8 % FS 30.34 % LV EDV (Teich) 93.2 mL LV ESV (Teich) 39.3 mL M-Mode TAPSE 2.68 cm (M/F) >1.7 Auto EF LV EDV A4C 150.5 mL LV EDV A2C 181.5 mL LV EDV BP 165.8 mL LV ESV A4C 65.5 mL LV ESV A2C 77.3 mL LV ESV BP 71.5 mL LVEF(%) A4C 56.5 % LVEF(%) A2C 57.4 % LVEF(%) BP 56.9 % LV SV A4C 85.0 ml LV SV A2C 104.2 ml LV SV BP 94.3 ml LV CO A4C 6.1 L/min LV CO A2C 8.5 L/min LV CO BP 7.3 L/min HR A4C 72.14 BPM HR A2C 81.64 BPM LV EDV Index (BP) LA Volume LA Length A4C 5.7 cm LA Length A2C 3.7 cm LA Area A4C s 17.61 cm2 LA Area A2C s 12.21 cm2 LA Vol A4C A-L 45.83 mL LA Vol A2C A-L 33.98 mL LA Vol Biplane A-L 49.0 mL LA Vol/BSA A4C A-L LA Vol/BSA A2C A-L LA Vol/BSA BP A-L 20.9 mL/m2 LA Vol A4C MOD 42.0 mL LA Vol A2C MOD 31.0 mL LA Vol BP MOD 44.8 mL RA Volume RA Area A4C 12.8 cm2 RA ESV A4C (A-L) 32.5mL RA Vol/BSA A4C A-L RA Length A4C 4.3 cm RA ESV A4C (MOD) 31.6mL LV Diastology MV E' medial 0.082 (>0.07 m/s) MV E Vmax 0.77 (0.4-1.3 m/s) MV E/E' MED 9.41 (<14) MV A Vmax 0.95 (0.4-1.3 m/s) MV E' lateral 0.123 (>0.1 m/s) E/A Ratio 0.8 MV E/E' LAT 6.27 (<14) MV E' Average 0.103 m/s MV E/E'(average) 7.53 Aortic Valve AoV Vmax 2.04 m/s LVOT Vmax 1.03 m/s AoV Peak Grad 16.6 mmHg LVOT Peak Grad 4.2 mmHg AoV Area (Vmax) 1.40 cm2 LVOT VTI 0.214 m AoV VTI 0.398 m LVOT Mean Grad 2.7 mmHg AoV Mean Yoel. 1.39 m/s LVOT SV 59.36 mL AoV Mean Grad 8.9 mmHg LVOT Diam s 1.85 cm AoV Area (VTI) 1.49 cm2 AV Regurg Peak Gr. 16.61 mmHg Velocity Ratio 0.50 Mitral Valve MV DT 339 (160-240 msec) MV Vmax TIPS 1.04 m/s MV Mean Grad 1.6 (<2mmHg) MV VTI 0.228 m Pulmonary Valve PV Vmax 1.25 (0.5-1.5 m/s) RVOT Vmax 0.92 m/s PV Peak Grad 6.2 mmHg RVOT Peak Gr. 3.4 mmHg PV Mean Yoel 0.81 m/s RVOT VTI 0.207 m PV Mean Grad 3.1 mmHg RVOT Mean Gr. 1.8 mmHg Tricuspid Valve RA Pressure 3.00 mmHg TV S' 0.15 m/s
== END 2024-09-27 01:34 ==
PROVIDERS: PCP Nurse Practitioner Family; Visit Provider Nurse Practitioner Family
DX: R06.00 Dyspnea, unspecified (principal); I35.0 Nonrheumatic aortic (valve) stenosis
CPT/HCPCS: 93306